=== PATIENT | male | born 1970 | race Hispanic/Latino ===

== ENCOUNTER 2017-10-22 23:55 | Emergency (ER) | payer BC, OTHER ==
[~2017-10-22 23:55] MED LIST: GABA-531 PO; GLIP10TA9 PO; LISI10TA7 PO; METF500T6 PO; SERT50TA12 PO; SIMV20TA6 PO
[2017-10-23 00:23] LABS: BASOPHILS % (AUTO) 0.4 % (0.0-5.0); EOSINOPHILS % (AUTO) 0.4 % (0.0-8.0); HEMATOCRIT 49.8 % (42-54); LYMPHOCYTES % (AUTO) 14.9 % (21.0-51.0); MEAN CORPUSCULAR HEMOGLOBIN 31.5 pg (27.0-33.0); MEAN CORPUSCULAR HGB CONC 34.8 g/dL (32.0-36.0); MEAN CORPUSCULAR VOLUME 90.6 fL (79-99); MONOCYTES % (AUTO) 6.3 % (3.0-13.0); PLATELET COUNT (AUTO) 186 K/uL (130-400); RED CELL DISTRIBUTION WIDTH 12.7 % (11.0-15.5); WHITE BLOOD COUNT (AUTO) 11.6 K/uL (4.8-10.8)
[2017-10-23] MEDS ORDERED: ONDANSETRON HCL 4 MG/2 ML VIAL ONE (00:24)
[2017-10-23] MEDS ORDERED: SODIUM CHLORIDE 0.9% 1000ML 1,000 ML IV ONE (00:24)
[2017-10-23] MEDS ORDERED: KETOROLAC TROMETHAMINE 30MG/ML ONE (00:25)
[2017-10-23 00:26] LABS: APPEARANCE,URINE Clear (CLEAR); BILIRUBIN,URINE Negative (NEGATIVE); COLOR,URINE Yellow (YELLOW); GLUCOSE, URINE (UA) >=1000 mg/dL (NEGATIVE); KETONES,URINE 40 mg/dL (NEGATIVE); LEUKOCYTE ESTERASE ,URINE Negative (NEGATIVE); NITRATE,URINE Negative (NEGATIVE); OCCULT BLOOD,URINE Negative (NEGATIVE); PH,URINE 7.5 (5.0-8.0); PROTEIN,URINE Negative (NEGATIVE); UROBILINOGEN,URINE 0.2 mg/dL (0.2-1.0)
[2017-10-23 00:31] LABS: CREATININE 0.7 mg/dL (0.5-1.5); POTASSIUM 3.9 mmol/L (3.5-5.1)
[2017-10-23 00:33] LABS: INR 0.94 (0.85-1.15); PARTIAL THROMBOPLASTIN TIME 26.7 SEC (26.3-35.5); PROTHROMBIN TIME 9.9 SEC (9.6-11.6)
[2017-10-23 00:35] LABS: ALBUMIN 3.7 g/dL (3.5-5.0); BILIRUBIN,DIRECT 0.2 mg/dL (0.0-0.3); BILIRUBIN,TOTAL 0.7 mg/dL (0.2-1.0); TOTAL PROTEIN, SERUM 7.9 g/dL (6.0-8.3)
[2017-10-23 00:37] LABS: BACTERIA,URINE Rare /HPF (None Seen); MUCUS,URINE None Seen LPF (None Seen); RBC,URINE None Seen /HPF (0-1); SQUAMOUS EPITHELIAL CELL,UR None Seen /LPF (0-2); WBC,URINE None Seen /HPF (0-1)
[2017-10-23 00:47] LABS: AMPHET/METH SCREEN,URINE NEGATIVE (NEGATIVE); BARBITURATE SCREEN, URINE NEGATIVE (NEGATIVE); BENZODIAZEPINES SCREEN,URINE NEGATIVE (NEGATIVE); CANNABINOID SCREEN,URINE NEGATIVE (NEGATIVE); COCAINE SCREEN,URINE POSITIVE (NEGATIVE); OPIATE SCREEN,URINE NEGATIVE (NEGATIVE); PHENCYCLIDINE SCREEN,URINE NEGATIVE (NEGATIVE)
== END 2017-10-23 01:25 | disposition home or self-care (01) ==
LOC: EDH 23:55
DX: K29.00 Acute gastritis without bleeding (principal); F14.10 Cocaine abuse, uncomplicated; E11.9 Type 2 diabetes mellitus without complications; I10 Essential (primary) hypertension; E78.5 Hyperlipidemia, unspecified; Z72.0 Tobacco use
CPT/HCPCS: 36415; 80048; 80076; 80305; 81001; 82550; 83690; 84484; 85025; 85610; 85730; 93005; 96361; 96374; 96375; 99285; J1885; J2405; J7030

== ENCOUNTER 2025-06-05 13:48 | Inpatient (IN) | payer BC, OTHER ==
[~2025-06-05] VITALS: Ht 175.3 cm; Wt 76.2 kg
[~2025-06-05 13:48] MED LIST changes: +GLIP10TA16 PO; -GLIP10TA9 PO; +LISI10TA24 PO; -LISI10TA7 PO; +METF-444 PO; -METF500T6 PO; +SERT-439 PO; -SERT50TA12 PO; +SIMV-43 PO; -SIMV20TA6 PO
[2025-06-05 14:32] LABS: IMMATURE GRANULOCYTE ABSOLUTE 0.02 K/uL (0-1); NUCLEATED RED BLOOD CELLS 0.0 % (0.0-0.19); PLATELET COUNT (AUTO) 245 K/uL (130-400); RED BLOOD CELL COUNT(AUTO) 5.34 MIL/uL (4.50-6.20); RED CELL DISTRIBUTION WIDTH 12.3 % (11.0-15.5); WHITE BLOOD COUNT (AUTO) 8.9 K/uL (4.8-10.8)
[2025-06-05 14:47] LABS: CREATININE 0.8 mg/dL (0.5-1.3); GLOMERULAR FILTR. RATE CALC 105.0 mL/min (>90); GLUCOSE,RANDOM 323.0 mg/dL (70-105); SODIUM SERUM 134.0 mmol/L (136-145); UREA NITROGEN, BLOOD 27.0 mg/dL (7-18)
--- NOTE | 2025-06-05 15:19 | ERN ---
General Chief Complaint: Cellulitis Stated Complaint: RT FOOT CELLULITIS Time Seen by MD: 13:55 Source: patient History of Present Illness Initial Comments PATIENT IS A 54-YEAR-OLD MALE COMING IN COMPLAINING OF RIGHT FOOT PAIN. PATIENT STATES HE WAS TRIMMING HIS TOENAIL AND NOTICED AN INFECTION IN THE RIGHT FOOT. PATIENT IS A DIABETIC. Allergies: Coded Allergies: No Known Drug Allergies (Unverified Allergy, Unknown, 10/15/16) Home Meds Reported Medications Glipizide (Glipizide) 10 Mg Tablet, 10 MG PO BID, TAB 10/22/16 Simvastatin (Simvastatin) 20 Mg Tablet, 20 MG PO HS, TAB 10/15/16 Gabapentin (Gabapentin) 300 Mg Capsule, 300 MG PO HS, CAP 10/15/16 Sertraline HCl (Sertraline HCl) 50 Mg Tablet, 50 MG PO HS, TAB 10/15/16 Lisinopril (Lisinopril) 10 Mg Tablet, 10 MG PO DAILY, TAB 10/15/16 Metformin HCl (Metformin HCl) 500 Mg Tablet, 500 MG PO BIDLUNCHDINNER, TAB 10/15/16 Past Medical History Past Medical History: Diabetes-Type II, High Cholesterol, Hypertension Past Surgical History: None ROS Dictation CONSTITUTIONAL: NO CHILLS, NO FEVER, NO WEAKNESS, NO DIAPHORESIS, NO MALAISE. HEAD/FACE: NO SIGNS OF TRAUMA. EENT: NO EYE PAIN, NO BLURRED VISION, NO TEARING, NO DOUBLE VISION, NO EAR PAIN, NO EAR DISCHARGE, NO NOSE PAIN, NO NASAL CONGESTION, NO THROAT PAIN, NO THROAT SWELLING, NO MOUTH PAIN. RESPIRATORY: NO COUGH, NO ORTHOPNEA, NO SOB, NO STRIDOR, NO WHEEZING. CARDIOVASCULAR: NO CHEST PAIN, NO EDEMA, NO PALPITATIONS, NO SYNCOPE. GASTROINTESTINAL/ABDOMINAL: NO ABDOMINAL PAIN, NO CONSTIPATION, NO DIARRHEA, NO NAUSEA, NO VOMITING. GENITOURINARY: NO ABNORMAL DISCHARGE, NO DYSURIA, NO FREQUENT URINATION, NO HEMATURIA. NO COMPLAINTS OF PAIN IN THE GENITALS. MUSCULOSKELETAL: NO BACK PAIN, NO GOUT, NO JOINT PAIN, NO JOINT SWELLING, NO MUSCLE PAIN, NO MUSCLE STIFFNESS, NO NECK PAIN. INTEGUMENTARY: NO CHANGE IN COLOR, NO CHANGE IN HAIR/NAILS, NO DRYNESS, NO LESION, NO LUMPS, NO RASH. NEUROLOGICAL/PSYCH: NO ANXIETY, NOT DEPRESSED, NO EMOTIONAL PROBLEM, NO HEADACHE, NO NUMBNESS, NO PRE-EXISTING DEFICIT, NO HISTORY OF SEIZURES, NO TREMORS, NO WEAKNESS. HEMATOLOGIC/LYMPHATIC: NOT ANEMIC, NO HISTORY OF BLOOD CLOTS, NO APPARENT BLEEDING, NO BRUISING, GLANDS NOT SWOLLEN. ALL SYSTEMS NEGATIVE, EXCEPT NOTED. Physical Exam Physical Exam Dictation VITAL SIGNS: REVIEWED. GENERAL APPEARANCE: ALERT, ORIENTED X3, NO ACUTE DISTRESS, OBESE. HEAD AND FACE: NON-TRAUMATIC. EYES: PERRL, PINK CONJUNCTIVAS, EYELID NO TRAUMA, ANTERIOR CHAMBER CLEAR. EARS: PINNAS INTACT AND NO SIGNS OF TRAUMA OR ERYTHEMA. EAR CANALS CLEAR AND NO DISCHARGE. TMS NO ERYTHEMA. NOSE: NO DISCHARGE, NO BLEEDING. OROPHARYNX: MOUTH NORMAL, TEETH NO CARIES, TONGUE PINK. PHARYNX CLEAR, NO ERYTHEMA. TONSILS NO EXUDATES, NO ABSCESSES NOTED. MUCOUS MEMBRANE MOIST. NECK: SUPPLE, NON-TENDER, NO THYROMEGALY, NO MASSES, NO JVD, NO BRUITS. BREAST: DEFERRED. CHEST: NO TENDERNESS, NO CREPITUS, NO PARADOXICAL MOVEMENT, NO RETRACTIONS. LUNGS: CLEAR, WELL-VENTILATED, SYMMETRIC, NO RALES, NO WHEEZING, NO RHONCHI, NO STRIDOR, GOOD BREATH SOUNDS BILATERALLY. HEART: REGULAR RATE, REGULAR RHYTHM, NO MURMUR, NO GALLOPS. VASCULAR: NO PERIPHERAL EDEMA. ABDOMEN: SOFT, POSITIVE BOWEL SOUNDS, NONDISTENDED, NO GUARDING, NONTENDER, NO REBOUND, NO MASSES NO HEPATOMEGALY, NO SPLENOMEGALY, NO ESTRADA'S SIGN, NO HERNIAS. RECTAL: DEFERRED. GENITAL: DEFERRED. NEUROLOGICAL: NORMAL SPEECH, GROSS MOTOR FUNCTION INTACT, GROSS SENSORY FUNCTION INTACT. MUSCULOSKELETAL: NECK NONTENDER, FULL RANGE OF MOTION, BACK NONTENDER, FULL RANGE OF MOTION. EXTREMITIES: NONTENDER, FULL RANGE OF MOTION. SKIN: COLOR ERYTHEMA, DRY, NO TURGOR, NO RASH, NO LACERATIONS, NO ABRASIONS, NO CONTUSIONS. LYMPHATICS: DEFERRED. Results Laboratory and Microbiology Lab and Micro Result Laboratory Tests Test 06/05/25 14:25 White Blood Count 8.9 K/uL (4.8-10.8) Red Blood Count 5.34 MIL/uL (4.50-6.20) Hemoglobin 16.3 g/dL (14.0-18.0) Hematocrit 46.3 % (42-54) Mean Corpuscular Volume 86.7 fL (79-99) Mean Corpuscular Hemoglobin 30.5 pg (27.0-33.0) Mean Corpuscular Hemoglobin Concent 35.2 g/dL (32.0-36.0) Red Cell Distribution Width 12.3 % (11.0-15.5) Platelet Count 245 K/uL (130-400) Mean Platelet Volume 9.3 fL (7.5-10.5) Immature Granulocyte % (Auto) 0.2 % (0-1) Neutrophils (%) (Auto) 73.5 % (40.0-77.0) Lymphocytes (%) (Auto) 17.3 % (21.0-51.0) L Monocytes (%) (Auto) 6.9 % (3.0-13.0) Eosinophils (%) (Auto) 1.7 % (0.0-8.0) Basophils (%) (Auto) 0.4 % (0.0-5.0) Neutrophils # (Auto) 6.6 K/uL (1.8-7.7) Lymphocytes # (Auto) 1.6 K/uL (1.0-4.8) Monocytes # (Auto) 0.6 K/uL (0.1-1.0) Eosinophils # (Auto) 0.15 K/uL (0.00-0.70) Basophils # (Auto) 0.04 K/uL (0.00-0.20) Absolute Immature Granulocyte (auto 0.02 K/uL (0-1) Nucleated Red Blood Cells 0.0 % (0.0-0.19) Erythrocyte Sedimentation Rate 10 MM/HR (0-20) Sodium Level 134 mmol/L (136-145) L Potassium Level 4.0 mmol/L (3.5-5.1) Chloride Level 97 mmol/L (101-111) L Carbon Dioxide Level 30 mmol/L (21-32) Blood Urea Nitrogen 27 mg/dL (7-18) H Creatinine 0.8 mg/dL (0.5-1.3) Glomerular Filtration Rate Calc 105 mL/min (>90) Random Glucose 323 mg/dL (70-105) H Total Calcium 9.0 mg/dL (8.5-10.1) C-Reactive Protein, Quantitative 20.30 mg/L (0.5-3.0) H Labs Reviewed?: Yes EKG/XRAY/US/CT/MRI X-RAY Comment X-RAY FOOT- 1ST PROXIMAL PHALANX FRACTURE MDM MDM: DIFFERENTIAL DIAGNOSIS: CELLULITIS, SEPSIS, DIABETES MELLITUS HYPERGLYCEMIA UNCONTROLLED, PHALANX FRACTURE, RATIONALE: TESTS CONSIDERED AND ORDERED SECONDARY TO SHARED DECISION MAKING INCLUDE: LABS, ECG AND RADIOLOGY PREVIOUS OUTSIDE RECORDS REVIEWED: OLD ER VISITS. RISK OF COMPLICATION AND/OR MORBIDITY OR MORTALITY OF PATIENT MANAGEMENT: NONE MEDICATIONS-PER MEDICATION RECONCILIATION NEED FOR HOSPITALIZATION: PATIENT DOES MEET CRITERIA FOR HOSPITALIZATION. NEED FOR EMERGENCY MAJOR/MINOR SURGERY: NO THERE ARE NO SOCIAL CONCERNS WITH THIS PATIENT. PRESCRIPTION DRUG MANAGEMENT PRESCRIPTIONS WILL INCLUDE SYMPTOMATIC CARE PATIENT'S PRIOR EXTERNAL MEDICAL RECORDS FROM OTHER ER VISITS WERE REVIEWED BY ME INDICATED. PRIOR TESTING AND RESULTS FROM PREVIOUS VISITS WERE REVIEWED. PRIOR TESTS WERE TAKEN INTO ACCOUNT WITH MEDICAL DECISION MAKING AND RESOURCE UTILIZATION, INDEPENDENT HISTORIAN/HISTORIANS WERE USED TO OBTAIN COMPLETE MED [facility] HISTORY. I INDEPENDENTLY INTERPRETED THE TEST THAT WERE PERFORMED, RESULTS WERE REVIEWED BY ME AND CONSIDERED FINDINGS ON RADIOLOGY IF ORDERED. MEDICAL MANAGEMENT AND EXAMINATION INTERPRETATION DISCUSSIONS WERE HAD BY ME WITH OTHER QUALIFIED HEALTHCARE PROFESSIONALS INDICATED FOR THE PATIENT'S CARE. PATIENT WILL BE ADMITTED UNDER THE CARE OF HOSPITALIST GROUP. ED Course Orders Procedure Category Date Status Time Cbc With Differential LAB 06/05/25 Complete 14:11 Basic Metabolic Panel LAB 06/05/25 Complete 14:11 Erythrocyte LAB 06/05/25 Complete Sedimentation Rate 14:11 Crp Quantitative LAB 06/05/25 Complete 14:11 Foot Comp 3+Vws Rt RAD 06/05/25 Resulted 14:11 Vancomycin 1g/250ml PHA 06/05/25 Complete Kit (Vancomycin 1g/2 15:30 Zosyn 3.375gm+Ns 50ml PHA 06/05/25 Complete (Zosyn 3.375gm+Ns 15:30 Insulin Regular, PHA 06/05/25 Complete Human 3ml (Humulin R 15:30 0.9%Nacl 1000ml (Ns PHA 06/05/25 Complete 1000ml) 15:30 Current Medications Medications (Trade) Dose Ordered Sig/Jenifer Route PRN Reason Start Time Stop Time Status Last Admin Dose Admin Insulin Human Regular (humuLIN R 100 UNIT/ML 3ML) 5 unit ONCE ONCE IV 06/05/25 15:30 06/05/25 15:36 DC 06/05/25 15:47 Piperacillin Sod/ Tazobactam Sod (Zosyn 3.375gm+NS 50ml) 3.375 gm Q12H STAT IV 06/05/25 15:30 06/05/25 15:36 DC 06/05/25 15:46 Sodium Chloride 1,000 ml @ 0 mls/hr ONCE ONCE IV 06/05/25 15:30 06/05/25 15:36 DC 06/05/25 15:45 Vancomycin HCl (Vancomycin 1g/ 250ml Kit) 1 gm ONCE ONCE IV 06/05/25 15:30 06/05/25 15:36 DC 06/05/25 15:46 Vital Signs Date Time Temp Pulse Resp B/P (MAP) Pulse Ox O2 Delivery O2 Flow Rate FiO2 06/05/25 13:54 98.8 92 16 138/84 99 Room Air* 0 21 06/05/25 13:49 98.8 106 16 145/90 99 Room Air 0 DX & DISP Disposition: Inpatient Decision to Admit Time: 15:58 Departure Impression: Primary Impression: Phalanx fracture, foot Additional Impressions: Sepsis, Cellulitis, Diabetes mellitus due to underlying condition, uncontrolled, with hyperglycemia Condition: Stable Referrals: WARREN MAJOR MD (PCP) PAUL ORTIZ MD Jun 05, 2025 15:19
[2025-06-05 15:44] LABS: ERYTHROCYTE SEDIMENTATION RATE 10 MM/HR (0-20)
[2025-06-05] MEDS: 0.9%NACL 1000ML 1,000 ML IV ONE (15:45)
[2025-06-05] MEDS: ZOSYN 3.375GM +NS 50ML IV STA (15:46)
[2025-06-05] MEDS: VANCOMYCIN KIT 1 GM/250 ML IV.KIT IV ONE (15:46)
--- NOTE | 2025-06-05 15:47 | HMCIMG ---
EXAM: CR right foot, 2 View. CLINICAL HISTORY: CELLULITIS COMPARISON: None provided. FINDINGS: BONES: Comminuted displaced fracture involving the head of the proximal phalanx of the first digit extending into the interphalangeal joint. Mild overlying soft tissue swelling. Small posterior calcaneal spur JOINTS: The joint spaces appear within normal limits. No dislocation. SOFT TISSUES: The soft tissues are unremarkable. IMPRESSION: 1. Comminuted displaced fracture of the first digit proximal phalanx head with intra-articular extension and mild soft tissue swelling. /[place]
[2025-06-05] MEDS ORDERED: VANCOMYCIN PROTOCOL PER PHARMACY IV SCH (17:30)
[2025-06-05 17:52] LABS: ASPARTATE AMINOTRANSFERASE 14.0 U/L (10-37); TOTAL PROTEIN, SERUM 7.5 g/dL (6.0-8.3)
--- NOTE | 2025-06-05 17:57 | HP ---
[facility] HISTORY AND PHYSICAL Date of Service: Jun 05, 2025 Time of Service: 17:48 HISTORY OF PRESENT ILLNESS: Date of service: 06/05/2025, patient was seen in ER room 10 54-year-old male with underlying history of poorly controlled type 2 diabetes mellitus, hypertension, chronic tobacco use disorder, history of cocaine use who presented to the ER for further evaluation of progressive redness, swelling of the 1st digit of the right toe with redness extending into the right forefoot and increased swelling of the right foot as well. Symptoms have been ongoing for the past 1-2 days and patient noticed this morning he had erythema of the 1st toe was significantly worse compared to yesterday. Denies any significant trauma or injury to the 1st digit of the right foot. He has a underlying history of onychomycosis of the toes. Patient reports having history of type 2 diabetes mellitus. He is supposed to be on insulin and metformin as outpatient. He has been noncompliant with insulin therapy for more than a year. He intermittently takes metformin as outpatient. Reports having history of hypertension but has not taken antihypertensives for several months. Patient reports smoking a pack of cigarettes in a week for more than 10 years. he uses cocaine as well every 2-3 days for several years as well. Denies any significant alcohol consumption. Presentation to the hospital, patient was noted to be afebrile with T-max of 98.8 F, heart rate of 106, blood pressure of 145/90. Labs on presentation showed WBC count of 8900, hemoglobin 16.3, platelet count of 130449. Remarkable for sodium of 134, potassium 4.0, chloride of 97, creatinine of 0.8, blood glucose of 323, CRP of 20.3. X-ray of the right foot showed comminuted displaced fracture of the 1st digit proximal phalanx with soft tissue swelling intra-articular extension. Patient will be admitted for progressive right foot/right 1st digit cellulitis, and we will also undergo workup to rule out acute osteomyelitis. Blood glucose will be controlled and patient will be reinstituted antihypertensives and insulin therapy. Consultation with Podiatry will be requested. REVIEW OF SYSTEMS CONSTITUTIONAL: Denies fevers, chills, or night sweats. No unintentional weight loss reported. NEUROLOGICAL: Denies headache, amaurosis fugax, motor weakness, sensory deficit, vertigo/spinning sensation, gait abnormalities, or tremors. ENT: No hearing loss, otalgia, otorrhea, rhinitis, rhinorrhea, hoarseness, or sore throat. CARDIOVASCULAR: Denies any exertional angina, dyspnea on exertion, orthopnea, paroxysmal nocturnal dyspnea, palpitations, life-threatening arrhythmias, claudication. PULMONARY: Denies any shortness of breath, cough, phlegm/sputum, hemoptysis, pleuritic chest pain. SLEEP: Denies morning headaches, daytime somnolence or napping. Denies difficulty falling asleep, staying asleep, waking from sleep. Denies knowledge of snoring. GASTROINTESTINAL: Denies any type of dysphagia to either liquids or solids. Denies nausea, vomiting, pyrosis, early satiety, abdominal pain, diarrhea, constipation, or changes in stool consistency or caliber. Denies coffee-ground emesis, hematemesis, hematochezia, or melanotic stools. GENITOURINARY: Denies frequency, urgency, nocturia, hematuria or incontinence (Storage/Irritative symptoms.) Low urinary stream, straining to void, urinary intermittency or hesitancy, splitting of the voiding stream, terminal dribbling. ENDOCRINOLOGIC: Denies polyuria, polydipsia, polyphagia or heat/cold intolerances. HEMATOLOGIC: Denies thrombophilia/previous clots, or coagulopathy/bleeding disorders. ONCOLOGIC: Denies personal history of malignancy. DERMATOLOGIC: Redness and swelling of the right PSYCHIATRIC: Denies any suicidal or homicidal ideation. Denies hallucinations. PAST MEDICAL HISTORY: Hypertension, hyperlipidemia, type 2 diabetes mellitus, history of cocaine use disorder, tobacco use disorder PAST SURGICAL HISTORY: Denies history of major surgical procedure PAST SOCIAL HISTORY: Smokes about a pack of cigarettes in a week for more than 10 years, uses cocaine two to 3 times a week for several years, denies significant alcohol consumption FAMILY HISTORY: Reports family history of type 2 diabetes mellitus Allergies: No known drug allergies Home medications: Reports being on metformin and lisinopril as outpatient Coded Allergies: No Known Drug Allergies (Unverified Allergy, Unknown, 10/15/16) PHYSICAL EXAM GENERAL APPEARANCE: The patient is awake, alert, and oriented, in no acute cardiopulmonary distress. NEUROLOGICAL: Cranial nerves II-XII grossly intact. Motor is 5/5 in bilateral upper and lower extremities proximal to distal. No sensory deficits. HEENT: Face is symmetric. Pupils are equal and reactive. Extraocular movements are intact. NECK: Supple. No JVD. No thyromegaly. No submental, submandibular, pre- /postauricular, occipital or supraclavicular lymphadenopathy. CHEST: Normal chest expansion. No Telemetry. LUNGS: Absence of any rales, rhonchi or any wheezing. CARDIOVASCULAR: Regular. S1 and S2 normal. No appreciable rubs, murmurs or gallops. ABDOMEN: Soft, nontender, and nondistended. There is no rebound, voluntary guarding, or rigidity. : Deferred. No Garcia. EXTREMITIES: Significant redness, erythema and swelling noted of the 1st digit of the right foot, there is erythema extending into the right forefoot and there is swelling noted of the right foot extending into the distal leg SKIN: as noted above Vital Sign (Last 24 Hours) 06/05/25 06/05/25 16:17 16:32 Temp 98.8 Pulse 72 Resp 19 B/P (MAP) 131/72 Pulse Ox 97 O2 Delivery Room Air* O2 Flow Rate 0 FiO2 21 LABS: Laboratory: Test 06/05/25 14:25 Range/Units White Blood Count 8.9 4.8-10.8 K/uL Red Blood Count 5.34 4.50-6.20 MIL/uL Hemoglobin 16.3 14.0-18.0 g/dL Hematocrit 46.3 42-54 % Mean Corpuscular Volume 86.7 79-99 fL Mean Corpuscular Hemoglobin 30.5 27.0-33.0 pg Mean Corpuscular Hemoglobin Concent 35.2 32.0-36.0 g/dL Red Cell Distribution Width 12.3 11.0-15.5 % Platelet Count 245 130-400 K/uL Mean Platelet Volume 9.3 7.5-10.5 fL Immature Granulocyte % (Auto) 0.2 0-1 % Neutrophils (%) (Auto) 73.5 40.0-77.0 % Lymphocytes (%) (Auto) 17.3 L 21.0-51.0 % Monocytes (%) (Auto) 6.9 3.0-13.0 % Eosinophils (%) (Auto) 1.7 0.0-8.0 % Basophils (%) (Auto) 0.4 0.0-5.0 % Neutrophils # (Auto) 6.6 1.8-7.7 K/uL Lymphocytes # (Auto) 1.6 1.0-4.8 K/uL Monocytes # (Auto) 0.6 0.1-1.0 K/uL Eosinophils # (Auto) 0.15 0.00-0.70 K/uL Basophils # (Auto) 0.04 0.00-0.20 K/uL Absolute Immature Granulocyte (auto 0.02 0-1 K/uL Nucleated Red Blood Cells 0.0 0.0-0.19 % Erythrocyte Sedimentation Rate 10 0-20 MM/HR Sodium Level 134 L 136-145 mmol/L Potassium Level 4.0 3.5-5.1 mmol/L Chloride Level 97 L 101-111 mmol/L Carbon Dioxide Level 30 21-32 mmol/L Blood Urea Nitrogen 27 H 7-18 mg/dL Creatinine 0.8 0.5-1.3 mg/dL Glomerular Filtration Rate Calc 105 >90 mL/min Random Glucose 323 H 70-105 mg/dL Total Calcium 9.0 8.5-10.1 mg/dL C-Reactive Protein, Quantitative 20.30 H 0.5-3.0 mg/L Current Medications Medications (Trade) Dose Ordered Sig/Jenifer Route PRN Reason Start Time Stop Time Status Last Admin Dose Admin Acetaminophen (TYLenol 325MG TAB) 650 mg Q6H PRN PO MILD PAIN (1-3) 06/05/25 17:30 07/05/25 17:29 Cefepime HCl (MAXipime 2 gm vial) 2 gm BID IVPB 06/05/25 21:00 06/15/25 20:59 Enoxaparin Sodium (Lovenox) 40 mg DAILY SQ 06/06/25 09:00 07/06/25 08:59 Famotidine (Pepcid 20mg Tab) 20 mg BID PO 06/05/25 21:00 07/05/25 20:59 Hydralazine HCl (APRESOLine 20MG INJ) 5 mg Q6H PRN IV ADMINISTER FOR SBP > 160 06/05/25 18:00 07/05/25 17:59 Insulin Glargine (LANtus 100 UNITS/ML 10 ML VIAL) 15 units HS SQ 06/05/25 21:00 07/05/25 20:59 Insulin Human Regular (humuLIN R 100 UNIT/ML 3ML) INSULIN SLIDING SCAL... ACHS SQ 06/05/25 21:00 07/05/25 20:59 Lisinopril (Prinivil 10mg) 10 mg DAILY PO 06/06/25 09:00 07/06/25 08:59 Morphine Sulfate (morPHINE 2MG SYG) 2 mg Q6H PRN IVP SEVERE PAIN (7-10) 06/05/25 17:30 06/12/25 17:29 Ondansetron HCl (zoFRAN 4MG INJ) 4 mg Q6H PRN IVP NAUSEA/VOMITING 06/05/25 17:30 07/05/25 17:29 Piperacillin Sod/ Tazobactam Sod (Zosyn 3.375gm+NS 50ml) 3.375 gm Q12H STAT IV 06/05/25 15:30 06/05/25 15:36 DC 06/05/25 15:46 3.375 GM Sodium Chloride 1,000 ml @ 75 mls/hr [id number] IV 06/05/25 17:30 07/05/25 17:29 Vancomycin HCl (Vancomycin 750mg) 750 mg Q8H IVPB 06/05/25 23:30 06/15/25 23:29 Vancomycin HCl (Vancomycin Protocol) 1 each AD IV 06/05/25 17:30 06/19/25 17:29 DIAGNOSTICS / RADIOLOGY: SERVICE 1411 REASON: CELLULITIS ORDERING PHYSICIAN: PAUL ORTIZ MD PROCEDURE: FT 3VW RT - FOOT COMP 3+VWS RT EXAM: CR right foot, 2 View. CLINICAL HISTORY: CELLULITIS COMPARISON: None provided. FINDINGS: BONES: Comminuted displaced fracture involving the head of the proximal phalanx of the first digit extending into the interphalangeal joint. Mild overlying soft tissue swelling. Small posterior calcaneal spur JOINTS: The joint spaces appear within normal limits. No dislocation. SOFT TISSUES: The soft tissues are unremarkable. IMPRESSION: 1. Comminuted displaced fracture of the first digit proximal phalanx head with intra-articular extension and mild soft tissue swelling. /[place] DICTATED BY: GORDO ZELAYA MD DATE: 06/05/25 164 ELECTRONICALLY SIGNED BY: GORDO ZELAYA MD DATE: 06/05/25 4387 ASSESSMENT: Progressive cellulitis of the right 1st toe of the right foot, POA Progressive cellulitis with swelling of the right foot, POA Rule out 1st toe fracture of the right foot/acute osteomyelitis of the 1st toe of the right foot, POA History of poorly controlled type 2 diabetes mellitus, POA History of hypertension, POA Tobacco use disorder, POA Cocaine use disorder, POA Hyperlipidemia, POA PLAN: Patient will be admitted to medical-surgical floor under telemetry monitoring We will start patient on IV hydration with NS at 75 mL/hour Obtain a MRI of the right foot to rule out osteomyelitis of the 1st digit of the right foot, we will obtain blood cultures, ESR, CRP, procalcitonin Consultation will be requested with Dr. Jensen with Podiatry, appreciate recommendations We will start patient on broad-spectrum antibiotics with IV vancomycin/cefepime due to significant cellulitis noted of the right foot with swelling extending into the distal right leg Consultation with Infectious Disease will be requested We will start patient on [id number] units at bedtime and continue sliding scale insulin a.c. and HS, we will obtain a hemoglobin A1c as well We will obtain a arterial duplex to rule out significant PAD of the right lower extremity Discussed with patient extensively to quit smoking and cocaine use, patient verbalized understanding All labs will be repeated in the morning We will keep patient on DVT prophylaxis with Lovenox, GI prophylaxis with Pepcid Anticipate hospitalization for at least 48-72 hours We will obtain 2 D Echo due to hx of cocaine use Date of service: 06/05/2025 Plan of care was discussed with patient at bedside, Eusebio Daniel MD Advanced Care Planning: Which of the following were discussed: Hospice care: Yes __ No _X_ Therapeutic options: Yes _X_ No __ Advance directives: Yes _X_ No __ Other discussions: Discussed with who?: Patient Voluntary nature of this service was explained to the patient? Yes _x_ No __ Amount of time spent: 20 minutes EUSEBIO DANIEL MD Jun 05, 2025 17:57
--- NOTE | 2025-06-05 17:59 | HMCIMG ---
EXAM: Ultrasound bilateral lower extremity arteries. History: Peripheral arterial disease Technique: Static grayscale and Doppler images were obtained Right side: [employer] systolic: 88 cm/s Waveform: Triphasic SFA proximal systolic: 95 cm/s Waveform: Triphasic SFA mid systolic: 91 cm/s Waveform: Triphasic SFA distal systolic: 92 cm/s Waveform triphasic Popliteal artery systolic: 93/90 cm/s Waveform triphasic Posterior tibial artery systolic 88 cm/s Waveform triphasic Dorsalis pedis artery systolic 78 cm/s Waveform triphasic Anterior tibial artery: 66 cm/s. Waveform: Triphasic Plaque formation: Minimal Left side: [employer] systolic: 98 cm/s Waveform: Triphasic SFA proximal systolic: 85 cm/s Waveform: Triphasic SFA mid systolic: 88 cm/s Waveform: Triphasic SFA distal systolic: 69 cm/s Waveform triphasic Popliteal artery systolic: 69/77 cm/s Waveform triphasic Posterior tibial artery systolic 80 cm/s Waveform triphasic Dorsalis pedis artery systolic 40 cm/s Waveform biphasic Anterior tibial artery: 40 cm/s. Waveform: Biphasic Plaque formation: Minimal Impression: No hemodynamically significant stenosis. Normal velocities and multiphasic waveform pattern throughout /[place]
[2025-06-05] MEDS: 0.9%NACL 1000ML 1,000 ML IV SCH (18:50)
[2025-06-05] MEDS: FAMOTIDINE 20MG TAB PO SCH (22:31)
--- NOTE | 2025-06-05 23:57 | NUR ---
REPORT GIVEN TO EDITH BRADFORD ALL QUESTIONS ANSWERED AT THIS TIME. RN EXPECTING PT ARRIVAL TO THE UNIT
[2025-06-06] VITALS (7 sets, daily range): BP systolic 106–154; BP diastolic 43–96; PULSE 82–96; RESP 16–20; TEMP 96.3–98.4; O2SAT 98
[2025-06-06] MEDS: VANCOMYCIN 750MG VIAL IVPB SCH (00:25)
[2025-06-06 00:27] LABS: APPEARANCE,URINE CLEAR (CLEAR); GLUCOSE, URINE (UA) >=1000 mg/dL (NEGATIVE); LEUKOCYTE ESTERASE ,URINE NEGATIVE Leu/uL (NEGATIVE); NITRATE,URINE NEGATIVE (NEGATIVE); OCCULT BLOOD,URINE NEGATIVE (NEGATIVE)
[2025-06-06 00:29] LABS: ADD UA MICROSCOPIC YES
[2025-06-06 00:35] LABS: AMPHET/METH SCREEN,URINE NEGATIVE (NEGATIVE); BARBITURATE SCREEN, URINE NEGATIVE (NEGATIVE); CANNABINOID SCREEN,URINE NEGATIVE (NEGATIVE); COCAINE SCREEN,URINE POSITIVE (NEGATIVE)
[2025-06-06 05:36] LABS: IMMATURE GRANULOCYTE ABSOLUTE 0.03 K/uL (0-1); NUCLEATED RED BLOOD CELLS 0.0 % (0.0-0.19); PLATELET COUNT (AUTO) 205 K/uL (130-400); RED BLOOD CELL COUNT(AUTO) 4.87 MIL/uL (4.50-6.20); RED CELL DISTRIBUTION WIDTH 12.2 % (11.0-15.5); WHITE BLOOD COUNT (AUTO) 10.2 K/uL (4.8-10.8)
[2025-06-06 05:53] LABS: CREATININE 0.7 mg/dL (0.5-1.3); GLOMERULAR FILTR. RATE CALC 110.0 mL/min (>90); GLUCOSE,RANDOM 162.0 mg/dL (70-105); SODIUM SERUM 140.0 mmol/L (136-145); UREA NITROGEN, BLOOD 17.0 mg/dL (7-18)
[2025-06-06] MEDS: LISINOPRIL 10 MG TABLET PO SCH (07:58)
[2025-06-06] MEDS: ENOXAPARIN SODIUM 40 MG/0.4 ML SYRINGE SQ SCH (07:59)
[2025-06-06] MEDS ORDERED: MAGNESIUM 2GM PREMIX 50ML 50 ML IV PRN (10:00)
[2025-06-06] MEDS: MAGNESIUM 2GM PREMIX 50ML 50 ML IV ONE (10:16)
--- NOTE | 2025-06-06 10:39 | NUR ---
DCP:HOME Pt currently lives with his mom Rafaela Browne [phone]. Pt does not have any DME, home health, or provider services. Pt states that he is able to complete ADLs independently. PCP is Dr. Fede Duarte and uses [facility] for any RX needs. At [place] pt will want to go home and family can assist with transportation. Addendum: 06/06/25 at 1041 by GORDO ROCHA SS Amended: Links added.
--- NOTE | 2025-06-06 11:09 | CONS ---
CONSULTATION NOTE Date of Service: Jun 06, 2025 Reason for Consultation: 54 years old male seen in consultation for evaluation of cellulitis and right hallux fracture. Requesting Physician: Dr. Daniel HISTORY OF PRESENT ILLNESS: This 54 years old male relates the story that he was walking and dark in the park last Wednesday when he sprained his foot possibly hitting his great toe on the pavement then after the the area of the hallux became red swollen and the swelling extended to the foot at this time concern about it the patient presented to the emergency room. REVIEW OF SYSTEMS CONSTITUTIONAL: Denies fever, chills, or fatigue. HEAD/FACE: No signs of trauma. EENT: Denies eye pain, blurred vision, double vision, or light sensitivity. RESPIRATORY: Denies shortness of breath, cough, wheezing CARDIOVASCULAR: Denies chest pain, palpitation, syncope GASTROINTESTINAL/ABDOMINAL: Denies abdominal pain, constipation, diarrhea, nausea or vomiting GENITOURINARY: Denies dysuria or hematuria. MUSCULOSKELETAL: Fracture great toe right foot. INTEGUMENTARY: Plantar calluses. Cellulitis of the right foot NEUROLOGICAL/PSYCH: Denies anxiety, depression, heat or cold intolerance. PAST MEDICAL HISTORY: Diabetes Hypertension PAST SURGICAL HISTORY: Denies any PAST SOCIAL HISTORY: Patient admits smoking. One package of cigarettes per day. History of cocaine use as per medical record. Stated he used to drink until one year ago. 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 FAMILY HISTORY: Noncontributory. Coded Allergies: No Known Drug Allergies (Unverified Allergy, Unknown, 10/15/16) PHYSICAL EXAM EYES: Anicteric. Pupils equal and reactive. HENT: No oral thrush seen, moist Oral mucosa NECK: Supple, no JVD or thyromegaly. LUNGS: Good air entry. No rales, no rhonchi. CARDIOVASCULAR: S1, S2 regular. No murmur heard. ABDOMEN: Soft, non tender, bowel sounds present, no organomegaly CENTRAL NERVOUS SYSTEM: Awake, alert, oriented x 3. No focal deficits. SKIN: Callus formation on bilateral great toes with cellulitis on the right foot extending from the toe to the posterior medial aspect of the foot. LYMPHATICS: No peripheral lymphadenopathy MUSCULOSKELETAL: No joint swelling, erythema or tenderness. EXTREMITIES: Hammertoe and bunion deformity on bilateral feet. BACK: No deformity, no pressure ulcer. GENITOURINARY: No dysuria or hematuria Vital Sign (Last 24 Hours) 06/06/25 06/06/25 00:10 08:00 Temp 97.9 Pulse 82 Resp 16 B/P (MAP) 106/43 Pulse Ox 98 O2 Delivery Room Air O2 Flow Rate 0 FiO2 21 LABS: Laboratory: Test 06/06/25 09:48 06/06/25 05:22 06/06/25 04:57 06/05/25 23:44 Range/Units Lactic Acid Level 0.9 0.8-2.5 mmol/L White Blood Count 10.2 4.8-10.8 K/uL Red Blood Count 4.87 4.50-6.20 MIL/uL Hemoglobin 14.9 14.0-18.0 g/dL Hematocrit 43.3 42-54 % Mean Corpuscular Volume 88.9 79-99 fL Mean Corpuscular Hemoglobin 30.6 27.0-33.0 pg Mean Corpuscular Hemoglobin Concent 34.4 32.0-36.0 g/dL Red Cell Distribution Width 12.2 11.0-15.5 % Platelet Count 205 130-400 K/uL Mean Platelet Volume 9.1 7.5-10.5 fL Immature Granulocyte % (Auto) 0.3 0-1 % Neutrophils (%) (Auto) 64.3 40.0-77.0 % Lymphocytes (%) (Auto) 23.0 21.0-51.0 % Monocytes (%) (Auto) 8.4 3.0-13.0 % Eosinophils (%) (Auto) 3.7 0.0-8.0 % Basophils (%) (Auto) 0.3 0.0-5.0 % Neutrophils # (Auto) 6.6 1.8-7.7 K/uL Lymphocytes # (Auto) 2.4 1.0-4.8 K/uL Monocytes # (Auto) 0.9 0.1-1.0 K/uL Eosinophils # (Auto) 0.38 0.00-0.70 K/uL Basophils # (Auto) 0.03 0.00-0.20 K/uL Absolute Immature Granulocyte (auto 0.03 0-1 K/uL Nucleated Red Blood Cells 0.0 0.0-0.19 % Sodium Level 140 136-145 mmol/L Potassium Level 4.0 3.5-5.1 mmol/L Chloride Level 104 101-111 mmol/L Carbon Dioxide Level 29 21-32 mmol/L Blood Urea Nitrogen 17 7-18 mg/dL Creatinine 0.7 0.5-1.3 mg/dL Glomerular Filtration Rate Calc 110 >90 mL/min Random Glucose 162 H 70-105 mg/dL Total Calcium 8.2 L 8.5-10.1 mg/dL Magnesium Level 1.60 L 1.80-2.40 mg/dL Whole Blood Glucose 160 #H 70-110 MG/DL Urine Color LIGHT-YELLOW YELLOW Urine Appearance CLEAR CLEAR Urine pH 6.5 5.0-8.0 Urine Specific [place] 1.022 1.001-1.031 Urine Protein NEGATIVE NEGATIVE mg/dL Urine Glucose (UA) >=1000 H NEGATIVE mg/dL Urine Ketones NEGATIVE NEGATIVE mg/dL Urine Occult Blood NEGATIVE NEGATIVE Urine Nitrate NEGATIVE NEGATIVE Urine Bilirubin NEGATIVE NEGATIVE mg/dL Urine Urobilinogen 0.2 0.2-1.0 mg/dL Urine Leukocyte Esterase NEGATIVE NEGATIVE Derick/uL Urine RBC 2-5 H 0-1 /HPF Urine WBC 0-1 0-1 /HPF Urine Bacteria RARE None Seen /HPF Urine Opiates Screen NEGATIVE NEGATIVE Urine Barbiturates Screen NEGATIVE NEGATIVE Urine Phencyclidine Screen NEGATIVE NEGATIVE Urine Amphetamines Screen NEGATIVE NEGATIVE Urine Benzodiazepines Screen NEGATIVE NEGATIVE Urine Cocaine Screen POSITIVE H NEGATIVE Urine Marijuana (THC) Screen NEGATIVE NEGATIVE Test 06/05/25 14:25 Range/Units Erythrocyte Sedimentation Rate 10 0-20 MM/HR Hemoglobin A1c 11.5 H 4.0-6.0 % Estimated Average Glucose (eAG) 283 H 70-126 mg/dL Total Bilirubin 1.1 H 0.2-1.0 mg/dL Direct Bilirubin 0.3 0.0-0.3 mg/dL Aspartate Amino Transf (AST/SGOT) 14 10-37 U/L Alanine Aminotransferase (ALT/SGPT) 24 12-78 U/L Alkaline Phosphatase 108 50-136 U/L C-Reactive Protein, Quantitative 20.30 H 0.5-3.0 mg/L Total Protein 7.5 6.0-8.3 g/dL Albumin 3.6 3.5-5.0 g/dL Procalcitonin < 0.05 L 0.05-0.5 ng/mL DIAGNOSTICS / RADIOLOGY: Fracture proximal phalanx right hallux. Intra-articular this place. ASSESSMENT: Fracture hallux proximal phalanx right foot. Cellulitis of the right foot. PLAN: Continue local wound care at this time we will monitor his progress most likely the patient will develop arthritis on this toe. If it does not improve with the mobilization and surgical shoe surgical removal of the head of the proximal phalanx to be done in the near future. We will monitor his progress. Recommended surgical shoe was patient ambulatory. To use the shoes for 4-6 weeks. WARREN FLYNN DPM Jun 06, 2025 11:09
--- NOTE | 2025-06-06 11:18 | PN ---
[facility] PROGRESS NOTE Date of Service: Jun 06, 2025 Time of Service: 11:15 SUBJECTIVE: 54-year-old male with underlying history of poorly controlled type 2 diabetes mellitus, hypertension, chronic tobacco use disorder, history of cocaine use who presented to the ER for further evaluation of progressive redness, swelling of the 1st digit of the right toe with redness extending into the right forefoot and increased swelling of the right foot as well. Symptoms have been ongoing for the past 1-2 days and patient noticed this morning he had erythema of the 1st toe was significantly worse compared to yesterday. Denies any significant trauma or injury to the 1st digit of the right foot. He has a underlying history of onychomycosis of the toes.Patient reports having history of type 2 diabetes mellitus. He is supposed to be on insulin and metformin as outpatient. He has been noncompliant with insulin therapy for more than a year. He intermittently takes metformin as outpatient. Reports having history of hypertension but has not taken antihypertensives for several months.Patient reports smoking a pack of cigarettes in a week for more than 10 years. he uses cocaine as well every 2-3 days for several years as well. Denies any significant alcohol consumption. Presentation to the hospital, patient was noted to be afebrile with T-max of 98.8 F, heart rate of 106, blood pressure of 145/90. Labs on presentation showed WBC count of 8900, hemoglobin 16.3, platelet count of 721561. Remarkable for sodium of 134, potassium 4.0, chloride of 97, creatinine of 0.8, blood glucose of 323, CRP of 20.3. X-ray of the right foot showed comminuted displaced fracture of the 1st digit proximal phalanx with soft tissue swelling intra-articular extension. Patient will be admitted for progress nash right foot/right 1st digit cellulitis, and we will also undergo workup to rule out acute osteomyelitis. Blood glucose will be controlled and patient will be reinstituted antihypertensives and insulin therapy. Consultation with Podiatry will be requested. 06/06/2025: The patient is alert, awake and oriented. There is no pain on the right leg or foot although the patient complains of pain in his left lateral chest wall that he attributes to muscle spasm that developed 5 days ago while he was picking something up. He is given a lidocaine patch for the is scheduled for an MRI of foot today along with echocardiogram. Patient has a history of non compliance to diabetic and hypertensive medication. His HbA1c is 11.5, therefore endocrinology is consulted. The patient is afebrile and has a WBC of 10.2, hemoglobin of 14.9. His magnesium was 1.60 and was replaced according to protocol. REVIEW OF SYSTEMS CONSTITUTIONAL: Denies fevers, chills, or night sweats. No unintentional weight loss reported. NEUROLOGICAL: Denies headache, amaurosis fugax, motor weakness, sensory deficit, vertigo/spinning sensation, gait abnormalities, or tremors. ENT: No hearing loss, otalgia, otorrhea, rhinitis, rhinorrhea, hoarseness, or sore throat. CARDIOVASCULAR: Denies any exertional angina, dyspnea on exertion, orthopnea, paroxysmal nocturnal dyspnea, palpitations, life-threatening arrhythmias, claudication. PULMONARY: Denies any shortness of breath, cough, phlegm/sputum, hemoptysis, pleuritic chest pain. SLEEP: Denies morning headaches, daytime somnolence or napping. Denies difficulty falling asleep, staying asleep, waking from sleep. Denies knowledge of snoring. GASTROINTESTINAL: Denies any type of dysphagia to either liquids or solids. Denies nausea, vomiting, pyrosis, early satiety, abdominal pain, diarrhea, constipation, or changes in stool consistency or caliber. Denies coffee-ground emesis, hematemesis, hematochezia, or melanotic stools. GENITOURINARY: Denies frequency, urgency, nocturia, hematuria or incontinence (Storage/Irritative symptoms.) Low urinary stream, straining to void, urinary intermittency or hesitancy, splitting of the voiding stream, terminal dribbling. ENDOCRINOLOGIC: Denies polyuria, polydipsia, polyphagia or heat/cold intolerances. HEMATOLOGIC: Denies thrombophilia/previous clots, or coagulopathy/bleeding disorders. ONCOLOGIC: Denies personal history of malignancy. DERMATOLOGIC: Redness and swelling of the right PSYCHIATRIC: Denies any suicidal or homicidal ideation. Denies hallucinations. PHYSICAL EXAM GENERAL APPEARANCE: The patient is awake, alert, and oriented, in no acute cardiopulmonary distress. NEUROLOGICAL: Cranial nerves II-XII grossly intact. Motor is 5/5 in bilateral upper and lower extremities proximal to distal. No sensory deficits. HEENT: Face is symmetric. Pupils are equal and reactive. Extraocular movements are intact. NECK: Supple. No JVD. No thyromegaly. No submental, submandibular, pre- /postauricular, occipital or supraclavicular lymphadenopathy. CHEST: Normal chest expansion. No Telemetry. Pain/tenderness on the left lateral chest wall. LUNGS: Absence of any rales, rhonchi or any wheezing. CARDIOVASCULAR: Regular. S1 and S2 normal. No appreciable rubs, murmurs or gallops. ABDOMEN: Soft, nontender, and nondistended. There is no rebound, voluntary guarding, or rigidity. : Deferred. No Garcia. EXTREMITIES: Significant redness, erythema and swelling noted of the 1st digit of the right foot, there is erythema extending into the right forefoot and there is swelling noted of the right foot extending into the distal leg SKIN: as noted above Vital Signs (last 8hr) Date Time Temp Pulse Resp B/P (MAP) Pulse Ox O2 Delivery O2 Flow Rate FiO2 06/06/25 08:00 97.9 82 16 106/43 98 Room Air 21 06/06/25 03:50 98.2 86 17 131/87 98 Room Air LABS: Laboratory: Test 06/06/25 09:48 06/06/25 05:22 06/06/25 04:57 06/05/25 23:44 Range/Units Lactic Acid Level 0.9 0.8-2.5 mmol/L White Blood Count 10.2 4.8-10.8 K/uL Red Blood Count 4.87 4.50-6.20 MIL/uL Hemoglobin 14.9 14.0-18.0 g/dL Hematocrit 43.3 42-54 % Mean Corpuscular Volume 88.9 79-99 fL Mean Corpuscular Hemoglobin 30.6 27.0-33.0 pg Mean Corpuscular Hemoglobin Concent 34.4 32.0-36.0 g/dL Red Cell Distribution Width 12.2 11.0-15.5 % Platelet Count 205 130-400 K/uL Mean Platelet Volume 9.1 7.5-10.5 fL Immature Granulocyte % (Auto) 0.3 0-1 % Neutrophils (%) (Auto) 64.3 40.0-77.0 % Lymphocytes (%) (Auto) 23.0 21.0-51.0 % Monocytes (%) (Auto) 8.4 3.0-13.0 % Eosinophils (%) (Auto) 3.7 0.0-8.0 % Basophils (%) (Auto) 0.3 0.0-5.0 % Neutrophils # (Auto) 6.6 1.8-7.7 K/uL Lymphocytes # (Auto) 2.4 1.0-4.8 K/uL Monocytes # (Auto) 0.9 0.1-1.0 K/uL Eosinophils # (Auto) 0.38 0.00-0.70 K/uL Basophils # (Auto) 0.03 0.00-0.20 K/uL Absolute Immature Granulocyte (auto 0.03 0-1 K/uL Nucleated Red Blood Cells 0.0 0.0-0.19 % Sodium Level 140 136-145 mmol/L Potassium Level 4.0 3.5-5.1 mmol/L Chloride Level 104 101-111 mmol/L Carbon Dioxide Level 29 21-32 mmol/L Blood Urea Nitrogen 17 7-18 mg/dL Creatinine 0.7 0.5-1.3 mg/dL Glomerular Filtration Rate Calc 110 >90 mL/min Random Glucose 162 H 70-105 mg/dL Total Calcium 8.2 L 8.5-10.1 mg/dL Magnesium Level 1.60 L 1.80-2.40 mg/dL Whole Blood Glucose 160 #H 70-110 MG/DL Urine Color LIGHT-YELLOW YELLOW Urine Appearance CLEAR CLEAR Urine pH 6.5 5.0-8.0 Urine Specific [place] 1.022 1.001-1.031 Urine Protein NEGATIVE NEGATIVE mg/dL Urine Glucose (UA) >=1000 H NEGATIVE mg/dL Urine Ketones NEGATIVE NEGATIVE mg/dL Urine Occult Blood NEGATIVE NEGATIVE Urine Nitrate NEGATIVE NEGATIVE Urine Bilirubin NEGATIVE NEGATIVE mg/dL Urine Urobilinogen 0.2 0.2-1.0 mg/dL Urine Leukocyte Esterase NEGATIVE NEGATIVE Derick/uL Urine RBC 2-5 H 0-1 /HPF Urine WBC 0-1 0-1 /HPF Urine Bacteria RARE None Seen /HPF Urine Opiates Screen NEGATIVE NEGATIVE Urine Barbiturates Screen NEGATIVE NEGATIVE Urine Phencyclidine Screen NEGATIVE NEGATIVE Urine Amphetamines Screen NEGATIVE NEGATIVE Urine Benzodiazepines Screen NEGATIVE NEGATIVE Urine Cocaine Screen POSITIVE H NEGATIVE Urine Marijuana (THC) Screen NEGATIVE NEGATIVE Test 06/05/25 14:25 Range/Units Erythrocyte Sedimentation Rate 10 0-20 MM/HR Hemoglobin A1c 11.5 H 4.0-6.0 % Estimated Average Glucose (eAG) 283 H 70-126 mg/dL Total Bilirubin 1.1 H 0.2-1.0 mg/dL Direct Bilirubin 0.3 0.0-0.3 mg/dL Aspartate Amino Transf (AST/SGOT) 14 10-37 U/L Alanine Aminotransferase (ALT/SGPT) 24 12-78 U/L Alkaline Phosphatase 108 50-136 U/L C-Reactive Protein, Quantitative 20.30 H 0.5-3.0 mg/L Total Protein 7.5 6.0-8.3 g/dL Albumin 3.6 3.5-5.0 g/dL Procalcitonin < 0.05 L 0.05-0.5 ng/mL Current Medications Medications (Trade) Dose Ordered Sig/Jenifer Route PRN Reason Start Time Stop Time Status Last Admin Dose Admin Acetaminophen (TYLenol 325MG TAB) 650 mg Q6H PRN PO MILD PAIN (1-3) 06/05/25 17:30 07/05/25 17:29 Cefepime HCl (MAXipime 2 gm vial) 2 gm BID IVPB 06/05/25 21:00 06/15/25 20:59 06/06/25 07:59 2 GM Enoxaparin Sodium (Lovenox) 40 mg DAILY SQ 06/06/25 09:00 07/06/25 08:59 06/06/25 07:59 40 MG Famotidine (Pepcid 20mg Tab) 20 mg BID PO 06/05/25 21:00 07/05/25 20:59 06/06/25 07:59 20 MG Gabapentin (NEURontin 300 MG CAP) 300 mg HS PO 06/06/25 21:00 07/06/25 20:59 Hydralazine HCl (APRESOLine 20MG INJ) 5 mg Q6H PRN IV ADMINISTER FOR SBP > 160 06/05/25 18:00 07/05/25 17:59 Insulin Glargine (LANtus 100 UNITS/ML 10 ML VIAL) 15 units HS SQ 06/05/25 21:00 07/05/25 20:59 06/05/25 22:46 15 UNITS Insulin Human Regular (humuLIN R 100 UNIT/ML 3ML) INSULIN SLIDING SCAL... ACHS SQ 06/05/25 21:00 07/05/25 20:59 06/05/25 22:46 8 UNIT Lisinopril (Prinivil 10mg) 10 mg DAILY PO 06/06/25 09:00 07/06/25 08:59 Magnesium Sulfate 50 ml @ 0 mls/hr PROTOCOL PRN IV MAGNESIUM PROTOCOL 06/06/25 10:00 07/06/25 09:59 Morphine Sulfate (morPHINE 2MG SYG) 2 mg Q6H PRN IVP SEVERE PAIN (7-10) 06/05/25 17:30 06/12/25 17:29 Ondansetron HCl (zoFRAN 4MG INJ) 4 mg Q6H PRN IVP NAUSEA/VOMITING 06/05/25 17:30 07/05/25 17:29 Piperacillin Sod/ Tazobactam Sod (Zosyn 3.375gm+NS 50ml) 3.375 gm Q12H STAT IV 06/05/25 15:30 06/05/25 15:36 DC 06/05/25 15:46 3.375 GM Sertraline HCl (ZOloft 50 mg tab) 50 mg HS PO 06/06/25 21:00 07/06/25 20:59 Simvastatin (zoCOR) 20 mg HS PO 06/06/25 21:00 07/06/25 20:59 Sodium Chloride 1,000 ml @ 75 mls/hr [id number] IV 06/05/25 17:30 07/05/25 17:29 06/06/25 06:06 75 MLS/HR Vancomycin HCl (Vancomycin 750mg) 750 mg Q8H IVPB 06/05/25 23:30 06/15/25 23:29 06/06/25 06:31 750 MG Vancomycin HCl (Vancomycin Protocol) 1 each AD IV 06/05/25 17:30 06/19/25 17:29 DIAGNOSTICS / RADIOLOGY: PATIENT: KO MAJOR MR#: [id number] : 1970 SEX: M AGE: 54 LOCATION: [facility] ORDER 11 STATUS: REG ER REPORT#: [id number] SERVICE 141 REASON: CELLULITIS ORDERING PHYSICIAN: PAUL ORTIZ MD PROCEDURE: FT 3VW RT - FOOT COMP 3+VWS RT EXAM: CR right foot, 2 View. CLINICAL HISTORY: CELLULITIS COMPARISON: None provided. FINDINGS: BONES: Comminuted displaced fracture involving the head of the proximal phalanx of the first digit extending into the interphalangeal joint. Mild overlying soft tissue swelling. Small posterior calcaneal spur JOINTS: The joint spaces appear within normal limits. No dislocation. SOFT TISSUES: The soft tissues are unremarkable. IMPRESSION: 1. Comminuted displaced fracture of the first digit proximal phalanx head with intra-articular extension and mild soft tissue swelling. /[place] DICTATED BY: GORDO ZELAYA MD DATE: 06/05/251646 ELECTRONICALLY SIGNED BY: GORDO ZELAYA MD DATE: 06/05/251646 PATIENT: KO MAJOR MR#: [id number] : 1970 SEX: M AGE: 54 LOCATION: [facility] ORDER 12 STATUS: ADM IN REPORT#: [id number] SERVICE 09 REASON: assess for any significant pad, right foot ceullitis, Hx of DM II, cocaine ORDERING PHYSICIAN: ALETA MELCHOR MD PROCEDURE: ART B LE - US ARTERIAL BILAT LOW EXT DUPL EXAM: Ultrasound bilateral lower extremity arteries. History: Peripheral arterial disease Technique: Static grayscale and Doppler images were obtained Right side: [employer]PERATOR systolic: 88 cm/s Waveform: Triphasic SFA proximal systolic: 95 cm/s Waveform: Triphasic SFA mid systolic: 91 cm/s Waveform: Triphasic SFA distal systolic: 92 cm/s Waveform triphasic Popliteal artery systolic: 93/90 cm/s Waveform triphasic Posterior tibial artery systolic 88 cm/s Waveform triphasic Dorsalis pedis artery systolic 78 cm/s Waveform triphasic Anterior tibial artery: 66 cm/s. Waveform: Triphasic Plaque formation: Minimal Left side: [employer] OPERATOR systolic: 98 cm/s Waveform: Triphasic SFA proximal systolic: 85 cm/s Waveform: Triphasic SFA mid systolic: 88 cm/s Waveform: Triphasic SFA distal systolic: 69 cm/s Waveform triphasic Popliteal artery systolic: 69/77 cm/s Waveform triphasic Posterior tibial artery systolic 80 cm/s Waveform triphasic Dorsalis pedis artery systolic 40 cm/s Waveform biphasic Anterior tibial artery: 40 cm/s. Waveform: Biphasic Plaque formation: Minimal Impression: No hemodynamically significant stenosis. Normal velocities and multiphasic waveform pattern throughout /[place] DICTATED BY: GORDO ZELAYA MD DATE: 06/05/251857 ELECTRONICALLY SIGNED BY: GORDO ZELAYA MD DATE: 06/05/251857 PATIENT: KO MAJOR MR#: [id number] : 1970 SEX: M AGE: 54 LOCATION: [facility] ORDER 9 STATUS: ADM IN REPORT#: [id number] SERVICE 7 REASON: chest pain ORDERING PHYSICIAN: CONCHITA TAMAYO MD PROCEDURE: CXR2VW - CHEST 2VWS EXAM: XR Chest, AP View. CLINICAL HISTORY: 54-year-old male with chest pain. COMPARISON: None provided. FINDINGS: LUNGS: Bilateral atelectasis in the lower lobes. PLEURAL SPACES: No pleural effusion or pneumothorax. HEART: The heart size is normal. BONES: Mild disease changes. No acute osseous abnormality. IMPRESSION: 1. Bilateral lower lobe atelectasis. 2. No pleural effusion or pneumothorax. /[place] DICTATED BY: NADIR PENNY MD DATE: 06/06/251517 ELECTRONICALLY SIGNED BY: NADIR PENNY MD DATE: 06/06/251517 ASSESSMENT: Progressive cellulitis of the right 1st toe of the right foot, POA Progressive cellulitis with swelling of the right foot, POA Rule out 1st toe fracture of the right foot/acute osteomyelitis of the 1st toe of the right foot, POA History of poorly controlled type 2 diabetes mellitus, POA History of hypertension, POA Tobacco use disorder, POA Cocaine use disorder, POA Hyperlipidemia, POA PLAN: Progressive cellulitis of the right 1st toe of the right foot, POA We will start patient on IV hydration with NS at 75 mL/hour Obtain a MRI of the right foot to rule out osteomyelitis of the 1st digit of the right foot. Podiatry saw the patient and recommended to continue local wound care, they will monitor his progress. Most likely the patient will develop arthritis on this toe. If it does not improve with the mobilization and surgical shoe surgical removal of the head of the proximal phalanx to be done in the near future. Recommended surgical shoe was patient ambulatory. To use the shoes for 4-6 weeks. Due to significant cellulitis noted of the right foot with swelling extending into the distal right leg , infectious disease consulted. Continue IV vancomycin (day 2) and cefepime (day 2) Ordered Uric acid for possible gout. Pro-Calcitonin is 0.05, CRP 20.30. Ordered lactic acid. Blood culture ordered. Awaiting results. Arterial duplex to rule out significant PAD of the right lower extremity was done and showed no stenosis. Xray of right foot showed comminuted displaced fracture of the first digit proximal phalanx head with intra-articular extension and mild soft tissue s welling. History of poorly controlled type 2 diabetes mellitus, POA Start patient on [id number] units at bedtime and continue sliding scale insulin a.c. and HS. HBA1c is 11.5 Consult endocrinology. Urinalysis showed glucose> 1000. Hypomagnesemia Magnesium today was 1.6. Replace according to protocol Hypertension Patient blood pressure today is 143/91 Started on Lisinopril 10 mg OD. Monitor blood pressure Hyperlipidemia Ordered lipid panel Stated on simvastatin Monitor lipid levels Lateral chest pain Patient complains of chest pain on the lateral chest, stared 5 days ago, likely muscular. Ordered chest xray, that shows bilateral lower lobe atelectasis. Ordered spirometry. Ordered lidocaine patch for pain. Cocaine abuse Ordered 2 D Echo due to hx of cocaine use. Results awaited We will keep patient on DVT prophylaxis with Lovenox, GI prophylaxis with Pepcid PHYSICIAN RESIDENT STATEMENT I was present with the resident during the History and Physical exam and I have reviewed the resident's note. This case was discussed with the resident and I agree with the history, physical exam and medical decision making as documented. Additions/exceptions/observations were directly added to the notes. Raúl Colunga MD, SYED M MD Jun 06, 2025 11:18
[2025-06-06] MEDS: LIDOCAINE 4% ADH..PATCH TP ONE (11:31)
--- NOTE | 2025-06-06 12:00 | NUR ---
[facility] Consult: Unable to assess at this time due to patient not in room for procedure. Addendum: 06/06/25 at 1431 by JOÃO GONZÁLES RN RN/NICHOLAS Amended: Links added.
--- NOTE | 2025-06-06 14:19 | HMCIMG ---
EXAM: XR Chest, AP View. CLINICAL HISTORY: 54-year-old male with chest pain. COMPARISON: None provided. FINDINGS: LUNGS: Bilateral atelectasis in the lower lobes. PLEURAL SPACES: No pleural effusion or pneumothorax. HEART: The heart size is normal. BONES: Mild disease changes. No acute osseous abnormality. IMPRESSION: 1. Bilateral lower lobe atelectasis. 2. No pleural effusion or pneumothorax. /[place]
[2025-06-06 15:08] LABS: LDL DIRECT 96 mg/dL (0-99)
--- NOTE | 2025-06-06 16:53 | HMCSR ---
APPROVED REPORT EXAM: Two-dimensional and M-mode echocardiogram with Doppler and color Doppler. INDICATION ICD: hx of cocaine use, r/o cardiomyopathy 2D Dimensions RVDd3.6 cmLVEF(%)45.2 (>50%)LVED Vol(simp.)88.0 mL IVSd1.0 (0.7-1.1cm)FS(%)22 %LVES Vol(simp.)42.0 mL LVDd4.6 (3.8-5.6cm)LA (2D)3.3 (1.6-4.0cm)LVEF(%, simp.)52 % PWd1.0 (0.7-1.1cm)Ao Root(2D)3.1 (2.0-3.7cm)LA ESV INDEX (BP)22.76 mL/m2 LVDs3.6 (2.5-4.0cm)LVOT diam2.3 (1.8-2.4cm) IVC diam2.4 cm Deformation Strain Apical 4-16.6 % Apical 2-16.4 % Apical 3-16.2 % Global Strain-16.4 % M-Mode Dimensions EPSS0.7 cm LA (MM)3.5 (1.6-4.0cm) Ao Root(MM)3.0 (2.0-3.7cm) Aortic Valve AoV Vmax1.2 m/Carter Peak GR5.9 mmHgLVOT Vmax0.7 m/s AoV VTI0.2 mAo Mean GR3.2 mmHgLVOT VTI0.14 m GABINO (VMAX)2.30 cm2AVA (VTI) 2.4 cm2 Mitral Valve MV E Vmax85.4 cm/sDECEL Xrlw516 ms MV A Vmax70.0 cm/sP 1/2 T55 ms E/A ratio1.2MVA (PHT)4.0 cm2 TDI E/E' Zrdssv05.6E/E' Lateral8.6 Medial E' Peak V7.37 cm/sLateral E' Peak V9.89 cm/s Pulmonary Valve PV Vmax0.9 m/sPV VTI0.16 mPV Mean GR2.2 mmHg PV Peak GR3.5 mmHg Left Ventricle The left ventricle is normal size. There is normal left ventricular wall thickness. LVEF is 50-55%. T he left ventricular diastolic function is normal. Right Ventricle The right ventricle is normal size. The right ventricular systolic function is normal. Atria The left atrium size is normal. The right atrium size is normal. Aortic Valve The aortic valve is normal in structure. No aortic regurgitation is present. There is no aortic valvu lar stenosis. Mitral Valve The mitral valve is normal in structure. There is no mitral valve regurgitation noted. There is no mi tral valve stenosis. Tricuspid Valve The tricuspid valve is normal in structure. There is no tricuspid valve regurgitation noted. Pulmonic Valve The pulmonary valve is normal in structure. There is no pulmonic valvular regurgitation. Great Vessels The aortic root is normal in size. The IVC is dilated and collapses >50% with inspiration. Pericardium There is no pericardial effusion. Conclusion The left ventricle is normal size. LVEF is 50-55%. The left ventricular diastolic function is normal. The right ventricle is normal size. The right ventricular systolic function is normal. The left atrium size is normal. The right atrium size is normal. No valvular pathology. There is no pericardial effusion.
--- NOTE | 2025-06-06 16:54 | HMCIMG ---
EXAM: MR RIGHT FOOT WITHOUT CONTRAST CLINICAL HISTORY: 54-year-old male assess for osteomyelitis. TECHNIQUE: Multiplanar multisequence magnetic resonance images were obtained WITHOUT contrast. CONTRAST: None COMPARISON: None FINDINGS: JOINTS: Moderate first metatarsal joint space narrowing with osteophyte formation consistent with mild osteoarthritis. BONE: Bone marrow edema along the distal aspect of the proximal phalanx of the first digit with chronic fractures seen. The bone marrow edema of the proximal phalanx can be seen in osteomyelitis as well. Correlate clinically. SOFT TISSUES: Extensive soft tissue edema of the muscles and subcutaneous soft tissues of the forefoot consistent with myositis and cellulitis. No definite focal fluid collection or abscess. IMPRESSION: 1. Extensive soft tissue edema of the forefoot consistent with myositis and cellulitis. No definite focal fluid collection or abscess. 2. Bone marrow edema along the distal aspect of the proximal phalanx of the first digit with chronic fractures. The bone marrow edema can be seen in osteomyelitis as well. Correlate clinically. 3. Moderate first metatarsal joint space narrowing with osteophyte formation, consistent with mild osteoarthritis. /[place]
[2025-06-06] MEDS: VANCOMYCIN 1.25 GM/250 ML BAG 250 ML IV SCH (18:39)
[2025-06-06] MEDS: GABAPENTIN 300 MG CAPSULE PO SCH (20:58)
[2025-06-07] VITALS (7 sets, daily range): BP systolic 122–155; BP diastolic 77–87; PULSE 80–97; RESP 17–20; TEMP 97.8–98.5; O2SAT 96–97
[2025-06-07 06:16] LABS: IMMATURE GRANULOCYTE ABSOLUTE 0.03 K/uL (0-1); NUCLEATED RED BLOOD CELLS 0.0 % (0.0-0.19); PLATELET COUNT (AUTO) 207 K/uL (130-400); RED BLOOD CELL COUNT(AUTO) 4.81 MIL/uL (4.50-6.20); RED CELL DISTRIBUTION WIDTH 12.1 % (11.0-15.5); WHITE BLOOD COUNT (AUTO) 8.9 K/uL (4.8-10.8)
[2025-06-07 07:29] LABS: CREATININE 0.6 mg/dL (0.5-1.3); GLOMERULAR FILTR. RATE CALC 115.0 mL/min (>90); GLUCOSE,RANDOM 240.0 mg/dL (70-105); SODIUM SERUM 137.0 mmol/L (136-145); UREA NITROGEN, BLOOD 16.0 mg/dL (7-18)
--- NOTE | 2025-06-07 08:37 | CONS ---
INFECTIOUS DISEASE CONSULTATION NOTE DATE OF SERVICE: 06/06/2025. REQUESTING PHYSICIAN: Eusebio Daniel MD REASON FOR CONSULTATION: Possible right greater toe osteomyelitis. HISTORY OF PRESENT ILLNESS: A 54-year-old male with history of alcohol abuse, cocaine abuse, and current tobacco use, presented to the hospital with right great toe pain, swelling and redness. He has also an injury to the right great toe. Noticed increased pain and swelling and came to the emergency room. X-ray has been done, which shows comminuted fracture. MRI has been done, but official report is pending. The patient also found with erythema involving the dorsum of the right foot. The patient has been started on vancomycin and cefepime. The patient uses tobacco and cocaine was positive. PAST MEDICAL HISTORY: * Diabetes mellitus. * Hypertension. * Cocaine abuse. * Current tobacco use. PAST SURGICAL HISTORY: Denied. ALLERGIES: No known drug allergies. CURRENT MEDICATIONS: Include: * Vancomycin. * Cefepime. * Insulin. * Tylenol. * Folic acid. SOCIAL HISTORY: The patient uses tobacco and cocaine. FAMILY HISTORY: Positive for diabetes mellitus. REVIEW OF SYSTEMS: Greater than 10 systems were reviewed and negative except as documented above. PHYSICAL EXAMINATION: GENERAL: Middle-aged male, awake. VITAL SIGNS: Temperature 98.1, pulse 86, respirations 16, BP 143/91. EYES: No icterus. Pupils equal and reactive. HENT: No oral thrush seen. Moist oral mucosa. NECK: Supple. No JVD or thyromegaly. LUNGS: Good air entry. No rales, no rhonchi. CARDIOVASCULAR SYSTEM: S1 and S2 regular. No murmur heard. ABDOMEN: Full, soft, nontender. Bowel sounds are present. CENTRAL NERVOUS SYSTEM: Awake, alert, oriented x 3. No focal deficits. SKIN: No rashes, no itchiness. LYMPHATIC: No peripheral lymphadenopathy. BACK: No deformity, no pressure ulcer. EXTREMITIES: Tenderness and erythema involving the right great toe. No fluctuancy LABORATORY DATA: Sodium 140, potassium 4.0, BUN 17, creatinine 0.7. WBC 10.7, hemoglobin 14.9, platelets 205. Urine toxicology positive for cocaine. RADIOLOGY: X-ray of the right foot shows first digit comminuted fracture. ASSESSMENT: A 54-year-old male presented with right great toe pain, swelling and redness. CURRENT PROBLEMS: Include: * Right foot cellulitis. * Right great toe comminuted fracture. * Hypertension. * Diabetes mellitus. * Leukocytosis. * Cocaine abuse. * Current tobacco use. PLAN: * Followup MRI result. * Continue vancomycin. * Continue cefepime. * Continue antihypertensive. * Continue antidiabetic. * Continue nutritional support. * Monitor electrolyte. * Monitor renal function. * The patient will be followed up closely. Thank you for allowing me to participate in the care of this patient. TID: [id number] RECEIPT: [id number]
[2025-06-07] MEDS: LACTULOSE 20 GM/30 ML UDCUP PO ONE (12:17)
[2025-06-07] MEDS: LIDOCAINE 4% ADH..PATCH TP ONE (12:17)
--- NOTE | 2025-06-07 14:10 | NUR ---
[facility] Follow-up: Patient re-assessed by wound healing team. No open wounds to right foot, cellulitis and edema noted. Education provided to patient. Addendum: 06/08/25 at 0900 by JOÃO GONZÁLES RN RN/NICHOLAS Amended: Links added.
--- NOTE | 2025-06-07 14:43 | PN ---
INFECTIOUS DISEASE PROGRESS NOTE Date of Service: Jun 07, 2025 SUBJECTIVE: This 54 year old male patient is being seen today at bedside. He is awake, alert and oriented x3. No fever or chills. No nausea or vomiting. He denies pain at this time. Patient is laying in bed. Calm. No acute events reported by nurse at this visit. MRI was reviewed with supervising physician. Patient remains on vancomycin and cefepime. PHYSICAL EXAM EYES: Anicteric. Pupils equal and reactive. HENT: No oral thrush seen, moist Oral mucosa NECK: Supple, no JVD or thyromegaly. LUNGS: Good air entry. No rales, no rhonchi. CARDIOVASCULAR: S1, S2 regular. No murmur heard. ABDOMEN: Soft, non tender, bowel sounds present, no organomegaly CENTRAL NERVOUS SYSTEM: Awake, alert, oriented x 3. No focal deficits. SKIN: No rashes, no swelling. LYMPHATICS: No peripheral lymphadenopathy MUSCULOSKELETAL: No joint swelling, erythema or tenderness. EXTREMITIES: Tenderness and erythema involving the right great toe. BACK: No deformity, no pressure ulcer. GENITOURINARY: No dysuria or hematuria Vital Sign (Last 12 Hours) 06/07/25 06/07/25 06/07/25 04:00 08:00 12:00 Temp 98.1 97.9 97.9 Pulse 80 91 87 Resp 20 17 18 B/P (MAP) 155/77 126/87 141/81 Pulse Ox 96 96 97 O2 Delivery Room Air Room Air Room Air Intake & Output (last 24hrs) 06/06/25 06/06/25 06/07/25 15:00 23:00 07:00 Intake Total 500 ml Balance 500 ml LABS: Laboratory: Test 06/07/25 11:16 06/07/25 05:23 06/06/25 14:40 06/06/25 09:48 Range/Units Whole Blood Glucose 209 H 70-110 MG/DL White Blood Count 8.9 4.8-10.8 K/uL Red Blood Count 4.81 4.50-6.20 MIL/uL Hemoglobin 14.8 14.0-18.0 g/dL Hematocrit 42.3 42-54 % Mean Corpuscular Volume 87.9 79-99 fL Mean Corpuscular Hemoglobin 30.8 27.0-33.0 pg Mean Corpuscular Hemoglobin Concent 35.0 32.0-36.0 g/dL Red Cell Distribution Width 12.1 11.0-15.5 % Platelet Count 207 130-400 K/uL Mean Platelet Volume 9.3 7.5-10.5 fL Immature Granulocyte % (Auto) 0.3 0-1 % Neutrophils (%) (Auto) 64.4 40.0-77.0 % Lymphocytes (%) (Auto) 24.0 21.0-51.0 % Monocytes (%) (Auto) 7.8 3.0-13.0 % Eosinophils (%) (Auto) 3.2 0.0-8.0 % Basophils (%) (Auto) 0.3 0.0-5.0 % Neutrophils # (Auto) 5.7 1.8-7.7 K/uL Lymphocytes # (Auto) 2.1 1.0-4.8 K/uL Monocytes # (Auto) 0.7 0.1-1.0 K/uL Eosinophils # (Auto) 0.29 0.00-0.70 K/uL Basophils # (Auto) 0.03 0.00-0.20 K/uL Absolute Immature Granulocyte (auto 0.03 0-1 K/uL Nucleated Red Blood Cells 0.0 0.0-0.19 % Sodium Level 137 136-145 mmol/L Potassium Level 3.7 3.5-5.1 mmol/L Chloride Level 103 101-111 mmol/L Carbon Dioxide Level 28 21-32 mmol/L Blood Urea Nitrogen 16 7-18 mg/dL Creatinine 0.6 0.5-1.3 mg/dL Glomerular Filtration Rate Calc 115 >90 mL/min Random Glucose 240 H 70-105 mg/dL Total Calcium 8.0 L 8.5-10.1 mg/dL Magnesium Level 1.80 1.80-2.40 mg/dL Triglycerides Level 137 30-200 mg/dL Cholesterol Level 152 <200 mg/dL LDL Cholesterol 96 0-99 mg/dL HDL Cholesterol 42 29-71 mg/dL Vancomycin Level Trough 7.5 L 10.0-20.0 UG/ML Lactic Acid Level 0.9 0.8-2.5 mmol/L Uric Acid 3.3 2.6-7.2 mg/dL Test 06/05/25 23:44 Range/Units Urine Color LIGHT-YELLOW YELLOW Urine Appearance CLEAR CLEAR Urine pH 6.5 5.0-8.0 Urine Specific [place] 1.022 1.001-1.031 Urine Protein NEGATIVE NEGATIVE mg/dL Urine Glucose (UA) >=1000 H NEGATIVE mg/dL Urine Ketones NEGATIVE NEGATIVE mg/dL Urine Occult Blood NEGATIVE NEGATIVE Urine Nitrate NEGATIVE NEGATIVE Urine Bilirubin NEGATIVE NEGATIVE mg/dL Urine Urobilinogen 0.2 0.2-1.0 mg/dL Urine Leukocyte Esterase NEGATIVE NEGATIVE Derick/uL Urine RBC 2-5 H 0-1 /HPF Urine WBC 0-1 0-1 /HPF Urine Bacteria RARE None Seen /HPF Urine Opiates Screen NEGATIVE NEGATIVE Urine Barbiturates Screen NEGATIVE NEGATIVE Urine Phencyclidine Screen NEGATIVE NEGATIVE Urine Amphetamines Screen NEGATIVE NEGATIVE Urine Benzodiazepines Screen NEGATIVE NEGATIVE Urine Cocaine Screen POSITIVE H NEGATIVE Urine Marijuana (THC) Screen NEGATIVE NEGATIVE DIAGNOSTICS / RADIOLOGY: EXAM: MR RIGHT FOOT WITHOUT CONTRAST CLINICAL HISTORY: 54-year-old male assess for osteomyelitis. TECHNIQUE: Multiplanar multisequence magnetic resonance images were obtained WITHOUT contrast. CONTRAST: None COMPARISON: None FINDINGS: JOINTS: Moderate first metatarsal joint space narrowing with osteophyte formation consistent with mild osteoarthritis. BONE: Bone marrow edema along the distal aspect of the proximal phalanx of the first digit with chronic fractures seen. The bone marrow edema of the proximal phalanx can be seen in osteomyelitis as well. Correlate clinically. SOFT TISSUES: Extensive soft tissue edema of the muscles and subcutaneous soft tissues of the forefoot consistent with myositis and cellulitis. No definite focal fluid collection or abscess. IMPRESSION: 1. Extensive soft tissue edema of the forefoot consistent with myositis and cellulitis. No definite focal fluid collection or abscess. 2. Bone marrow edema along the distal aspect of the proximal phalanx of the first digit with chronic fractures. The bone marrow edema can be seen in osteomyelitis as well. Correlate clinically. 3. Moderate first metatarsal joint space narrowing with osteophyte formation, consistent with mild osteoarthritis. ASSESSMENT: * Right foot cellulitis. * Right great toe comminuted fracture. * Hypertension. * Diabetes mellitus. * Leukocytosis. * Cocaine abuse. * Current tobacco use. PLAN: * Continue vancomycin. * Continue cefepime. * Continue antihypertensive. * Continue antidiabetic. * Continue nutritional support. * Monitor electrolyte. * Monitor renal function. * The patient will be followed up closely. This case has been discussed with my supervising physician Dr. Rico. The case has been discussed and agreed upon. PRABHA OMER [facility] Jun 07, 2025 14:43
--- NOTE | 2025-06-07 16:06 | CONS ---
CONSULT NOTE: Endocrinology Consult Chief complaint: right toe and foot redness/swelling Reason for consult:uncontrolled dm-2 DOS:06/07/25 HISTORY OF PRESENT ILLNESS: 54-year-old male with underlying history of poorly controlled type 2 diabetes mellitus, hypertension, chronic tobacco use disorder, history of cocaine use who presented to the ER for further evaluation of progressive redness, swelling of the 1st digit of the right toe with redness extending into the right forefoot and increased swelling of the right foot as well. He has a underlying history of onychomycosis of the toes. Patient reports having history of type 2 diabetes mellitus. He is supposed to be on insulin and metformin as outpatient. He has been noncompliant with insulin therapy for more than a year. He intermittently takes metformin as outpatient. Reports having history of hypertension but has not taken antihypertensives for several months. Presentation to the hospital, patient was noted to be afebrile with T-max of 98.8 F, heart rate of 106, blood pressure of 145/90. Labs on presentation showed WBC count of 8900, hemoglobin 16.3, platelet count of 297452. Remarkable for sodium of 134, potassium 4.0, chloride of 97, creatinine of 0.8, blood glucose of 323, CRP of 20.3. X-ray of the right foot showed comminuted displaced fracture of the 1st digit proximal phalanx with soft tissue swelling intra-articular extension. Podiatry is following. REVIEW OF SYSTEMS CONSTITUTIONAL: Denies fevers, chills, or night sweats. No unintentional weight loss reported. NEUROLOGICAL: Denies headache, amaurosis fugax, motor weakness, sensory deficit, vertigo/spinning sensation, gait abnormalities, or tremors. ENT: No hearing loss, otalgia, otorrhea, rhinitis, rhinorrhea, hoarseness, or sore throat. CARDIOVASCULAR: Denies any exertional angina, dyspnea on exertion, orthopnea, paroxysmal nocturnal dyspnea, palpitations, life-threatening arrhythmias, claudication. PULMONARY: Denies any shortness of breath, cough, phlegm/sputum, hemoptysis, pleuritic chest pain. SLEEP: Denies morning headaches, daytime somnolence or napping. Denies difficulty falling asleep, staying asleep, waking from sleep. Denies knowledge of snoring. GASTROINTESTINAL: Denies any type of dysphagia to either liquids or solids. Denies nausea, vomiting, pyrosis, early satiety, abdominal pain, diarrhea, constipation, or changes in stool consistency or caliber. Denies coffee-ground emesis, hematemesis, hematochezia, or melanotic stools. GENITOURINARY: Denies frequency, urgency, nocturia, hematuria or incontinence (Storage/Irritative symptoms.) Low urinary stream, straining to void, urinary intermittency or hesitancy, splitting of the voiding stream, terminal dribbling. ENDOCRINOLOGIC: Denies polyuria, polydipsia, polyphagia or heat/cold intolerances. HEMATOLOGIC: Denies thrombophilia/previous clots, or coagulopathy/bleeding disorders. ONCOLOGIC: Denies personal history of malignancy. DERMATOLOGIC: Redness and swelling of the right PSYCHIATRIC: Denies any suicidal or homicidal ideation. Denies hallucinations. PAST MEDICAL HISTORY: Hypertension, hyperlipidemia, type 2 diabetes mellitus, history of cocaine use disorder, tobacco use disorder PAST SURGICAL HISTORY: Denies history of major surgical procedure PAST SOCIAL HISTORY: Smokes about a pack of cigarettes in a week for more than 10 years, uses cocaine two to 3 times a week for several years, denies significant alcohol consumption FAMILY HISTORY: Reports family history of type 2 diabetes mellitus Allergies: No known drug allergies Home medications: Reports being on metformin and lisinopril as outpatient Coded Allergies: No Known Drug Allergies (Unverified Allergy, Unknown, 10/15/16) PHYSICAL EXAM GENERAL APPEARANCE: The patient is awake, alert, and oriented, in no acute cardiopulmonary distress. NEUROLOGICAL: Cranial nerves II-XII grossly intact. Motor is 5/5 in bilateral upper and lower extremities proximal to distal. No sensory deficits. HEENT: Face is symmetric. Pupils are equal and reactive. Extraocular movements are intact. NECK: Supple. No JVD. No thyromegaly. No submental, submandibular, pre- /postauricular, occipital or supraclavicular lymphadenopathy. CHEST: Normal chest expansion. No Telemetry. LUNGS: Absence of any rales, rhonchi or any wheezing. CARDIOVASCULAR: Regular. S1 and S2 normal. No appreciable rubs, murmurs or gallops. ABDOMEN: Soft, nontender, and nondistended. There is no rebound, voluntary guarding, or rigidity. : Deferred. No Garcia. EXTREMITIES: Significant redness, erythema and swelling noted of the 1st digit of the right foot, there is erythema extending into the right forefoot and there is swelling noted of the right foot extending into the distal leg SKIN: as noted above DIAGNOSTICS / RADIOLOGY: SERVICE 10 REASON: CELLULITIS ORDERING PHYSICIAN: PAUL ORTIZ MD PROCEDURE: FT 3VW RT - FOOT COMP 3+VWS RT EXAM: CR right foot, 2 View. CLINICAL HISTORY: CELLULITIS COMPARISON: None provided. FINDINGS: BONES: Comminuted displaced fracture involving the head of the proximal phalanx of the first digit extending into the interphalangeal joint. Mild overlying soft tissue swelling. Small posterior calcaneal spur JOINTS: The joint spaces appear within normal limits. No dislocation. SOFT TISSUES: The soft tissues are unremarkable. IMPRESSION: 1. Comminuted displaced fracture of the first digit proximal phalanx head with intra-articular extension and mild soft tissue swelling. /[place] DICTATED BY: GORDO ZELAYA MD DATE: 06/05/251646 ELECTRONICALLY SIGNED BY: GORDO ZELAYA MD DATE: 06/05/251646 ASSESSMENT: History of poorly controlled type 2 diabetes mellitus, POA Home diabetic regimen: Hba1c 11.5% glucose runs greater than 200 mg/dl and insulin adjusted. Progressive cellulitis of the right 1st toe of the right foot, POA Progressive cellulitis with swelling of the right foot, POA podiatry following History of hypertension, POA Tobacco use disorder, POA Cocaine use disorder, POA Hyperlipidemia, POA PLAN: increase lantus to 25 units daily and adjust for fasting glucose. increase Regular insulin to 7 units daily and adjust for post-prandial glucose. Continue medium dose sliding scale insulin. Monitor glucose q x 6 hourly. Continue carb consistent diet. Keep glucose less than 180 mg/dl. Patient will need novolin 70/30 insulin 30 units AM and 15 units PM. Thanks for allowing me to participate in patient care and will continue to follow up. Vital Signs 06/06/25 06/07/25 21:00 12:00 Temp 97.9 Pulse 87 Resp 18 B/P (MAP) 141/81 Pulse Ox 97 O2 Delivery Room Air O2 Flow Rate 0 FiO2 21 Hematology Labs: Test 06/07/25 05:23 Range/Units White Blood Count 8.9 4.8-10.8 K/uL Red Blood Count 4.81 4.50-6.20 MIL/uL Hemoglobin 14.8 14.0-18.0 g/dL Hematocrit 42.3 42-54 % Mean Corpuscular Volume 87.9 79-99 fL Mean Corpuscular Hemoglobin 30.8 27.0-33.0 pg Mean Corpuscular Hemoglobin Concent 35.0 32.0-36.0 g/dL Red Cell Distribution Width 12.1 11.0-15.5 % Platelet Count 207 130-400 K/uL Mean Platelet Volume 9.3 7.5-10.5 fL Immature Granulocyte % (Auto) 0.3 0-1 % Neutrophils (%) (Auto) 64.4 40.0-77.0 % Lymphocytes (%) (Auto) 24.0 21.0-51.0 % Monocytes (%) (Auto) 7.8 3.0-13.0 % Eosinophils (%) (Auto) 3.2 0.0-8.0 % Basophils (%) (Auto) 0.3 0.0-5.0 % Neutrophils # (Auto) 5.7 1.8-7.7 K/uL Lymphocytes # (Auto) 2.1 1.0-4.8 K/uL Monocytes # (Auto) 0.7 0.1-1.0 K/uL Eosinophils # (Auto) 0.29 0.00-0.70 K/uL Basophils # (Auto) 0.03 0.00-0.20 K/uL Absolute Immature Granulocyte (auto 0.03 0-1 K/uL Nucleated Red Blood Cells 0.0 0.0-0.19 % Chemistry Labs: Test 06/07/25 15:24 06/07/25 05:23 06/06/25 14:40 06/06/25 09:48 Range/Units Whole Blood Glucose 147 H 70-110 MG/DL Sodium Level 137 136-145 mmol/L Potassium Level 3.7 3.5-5.1 mmol/L Chloride Level 103 101-111 mmol/L Carbon Dioxide Level 28 21-32 mmol/L Blood Urea Nitrogen 16 7-18 mg/dL Creatinine 0.6 0.5-1.3 mg/dL Glomerular Filtration Rate Calc 115 >90 mL/min Random Glucose 240 H 70-105 mg/dL Total Calcium 8.0 L 8.5-10.1 mg/dL Magnesium Level 1.80 1.80-2.40 mg/dL Triglycerides Level 137 30-200 mg/dL Cholesterol Level 152 <200 mg/dL LDL Cholesterol 96 0-99 mg/dL HDL Cholesterol 42 29-71 mg/dL Lactic Acid Level 0.9 0.8-2.5 mmol/L Uric Acid 3.3 2.6-7.2 mg/dL Current Medications Medications (Trade) Dose Ordered Sig/Jenifer Route Start Time Stop Time Status Last Admin Dose Admin Cefepime HCl (MAXipime 2 gm vial) 2 gm BID IVPB 06/05/25 21:00 06/15/25 20:59 06/07/25 08:08 2 GM Enoxaparin Sodium (Lovenox) 40 mg DAILY SQ 06/06/25 09:00 07/06/25 08:59 06/07/25 08:09 40 MG Famotidine (Pepcid 20mg Tab) 20 mg BID PO 06/05/25 21:00 07/05/25 20:59 06/07/25 08:09 20 MG Gabapentin (NEURontin 300 MG CAP) 300 mg HS PO 06/06/25 21:00 07/06/25 20:59 06/06/25 20:58 300 MG Insulin Glargine (LANtus 100 UNITS/ML 10 ML VIAL) 15 units HS SQ 06/05/25 21:00 07/05/25 20:59 06/06/25 21:01 15 UNITS Insulin Glargine (LANtus 100 UNITS/ML 10 ML VIAL) 25 units DAILY08 SQ 06/07/25 08:00 07/07/25 07:59 06/07/25 08:14 25 UNITS Insulin Human Regular (humuLIN R 100 UNIT/ML 3ML) 5 unit TIDAC SQ 06/07/25 07:30 07/07/25 07:29 06/07/25 12:23 5 UNIT Insulin Human Regular (humuLIN R 100 UNIT/ML 3ML) INSULIN SLIDING SCAL... ACHS SQ 06/05/25 21:00 06/06/25 21:36 DC 06/06/25 21:00 8 UNIT Insulin Human Regular (humuLIN R 100 UNIT/ML 3ML) INSULIN SLIDING SCAL... ACHS SQ 06/07/25 07:30 07/07/25 07:29 06/07/25 12:23 4 UNIT Lisinopril (Prinivil 10mg) 10 mg DAILY PO 06/06/25 09:00 07/06/25 08:59 06/07/25 08:09 10 MG Piperacillin Sod/ Tazobactam Sod (Zosyn 3.375gm+NS 50ml) 3.375 gm Q12H STAT IV 06/05/25 15:30 06/05/25 15:36 DC 06/05/25 15:46 3.375 GM Sertraline HCl (ZOloft 50 mg tab) 50 mg HS PO 06/06/25 21:00 07/06/25 20:59 06/06/25 20:58 50 MG Simvastatin (zoCOR) 20 mg HS PO 06/06/25 21:00 07/06/25 20:59 06/06/25 20:58 20 MG Sodium Chloride 1,000 ml @ 75 mls/hr [id number] IV 06/05/25 17:30 07/05/25 17:29 06/06/25 06:06 75 MLS/HR Vancomycin HCl 250 ml @ 125 mls/hr Q8H IV 06/06/25 17:00 06/16/25 16:59 06/07/25 08:08 125 MLS/HR Vancomycin HCl (Vancomycin 750mg) 750 mg Q8H IVPB 06/05/25 23:30 06/06/25 16:06 DC 06/06/25 06:31 750 MG Vancomycin HCl (Vancomycin Protocol) 1 each AD IV 06/05/25 17:30 06/19/25 17:29 ELISA MAYS MD Jun 07, 2025 16:06
--- NOTE | 2025-06-07 17:25 | PN ---
[facility] PROGRESS NOTE Date of Service: Jun 07, 2025 Time of Service: 17:11 SUBJECTIVE: 54-year-old male with underlying history of poorly controlled type 2 diabetes mellitus, hypertension, chronic tobacco use disorder, history of cocaine use who presented to the ER for further evaluation of progressive redness, swelling of the 1st digit of the right toe with redness extending into the right forefoot and increased swelling of the right foot as well. Symptoms have been ongoing for the past 1-2 days and patient noticed this morning he had erythema of the 1st toe was significantly worse compared to yesterday. Denies any significant trauma or injury to the 1st digit of the right foot. He has a underlying history of onychomycosis of the toes.Patient reports having history of type 2 diabetes mellitus. He is supposed to be on insulin and metformin as outpatient. He has been noncompliant with insulin therapy for more than a year. He intermittently takes metformin as outpatient. Reports having history of hypertension but has not taken antihypertensives for several months.Patient reports smoking a pack of cigarettes in a week for more than 10 years. he uses cocaine as well every 2-3 days for several years as well. Denies any significant alcohol consumption. Presentation to the hospital, patient was noted to be afebrile with T-max of 98.8 F, heart rate of 106, blood pressure of 145/90. Labs on presentation showed WBC count of 8900, hemoglobin 16.3, platelet count of 475175. Remarkable for sodium of 134, potassium 4.0, chloride of 97, creatinine of 0.8, blood glucose of 323, CRP of 20.3. X-ray of the right foot showed comminuted displaced fracture of the 1st digit proximal phalanx with soft tissue swelling intra-articular extension. Patient will be admitted for progress nash right foot/right 1st digit cellulitis, and we will also undergo workup to rule out acute osteomyelitis. Blood glucose will be controlled and patient will be reinstituted antihypertensives and insulin therapy. Consultation with Podiatry will be requested. 06/06/2025: The patient is alert, awake and oriented. There is no pain on the right leg or foot although the patient complains of pain in his left lateral chest wall that he attributes to muscle spasm that developed 5 days ago while he was picking something up. He is given a lidocaine patch for the pain. He is scheduled for an MRI of foot today along with echocardiogram. Patient has a history of non compliance to diabetic and hypertensive medication. His HbA1c is 11.5, therefore endocrinology is consulted. The patient is afebrile and has a WBC of 10.2, hemoglobin of 14.9. His magnesium was 1.60 and was replaced according to protocol. 06/07/2025: The patient is alert, awake and oriented. There is no pain on the right leg or foot. The patient says that the pain in his left lateral chest is improved but requested for another lidocaine patch which was ordered. The patient complains of constipation since past 3 days therefore lactulose were ordered. The patient's echo results came back and was nonsignificant for any pathology. The patient is started on insulin as per Endocrinology review and is continued on cefepime and vancomycin. Infectious diseases is following the patient. REVIEW OF SYSTEMS CONSTITUTIONAL: Denies fevers, chills, or night sweats. No unintentional weight loss reported. NEUROLOGICAL: Denies headache, amaurosis fugax, motor weakness, sensory deficit, vertigo/spinning sensation, gait abnormalities, or tremors. ENT: No hearing loss, otalgia, otorrhea, rhinitis, rhinorrhea, hoarseness, or sore throat. CARDIOVASCULAR: Denies any exertional angina, dyspnea on exertion, orthopnea, paroxysmal nocturnal dyspnea, palpitations, life-threatening arrhythmias, claudication. PULMONARY: Denies any shortness of breath, cough, phlegm/sputum, hemoptysis, pleuritic chest pain. SLEEP: Denies morning headaches, daytime somnolence or napping. Denies difficulty falling asleep, staying asleep, waking from sleep. Denies knowledge of snoring. GASTROINTESTINAL: Denies any type of dysphagia to either liquids or solids. Denies nausea, vomiting, pyrosis, early satiety, abdominal pain, diarrhea, constipation, or changes in stool consistency or caliber. Denies coffee-ground emesis, hematemesis, hematochezia, or melanotic stools. GENITOURINARY: Denies frequency, urgency, nocturia, hematuria or incontinence (Storage/Irritative symptoms.) Low urinary stream, straining to void, urinary intermittency or hesitancy, splitting of the voiding stream, terminal dribbling. ENDOCRINOLOGIC: Denies polyuria, polydipsia, polyphagia or heat/cold intolerances. HEMATOLOGIC: Denies thrombophilia/previous clots, or coagulopathy/bleeding disorders. ONCOLOGIC: Denies personal history of malignancy. DERMATOLOGIC: Redness and swelling of the right PSYCHIATRIC: Denies any suicidal or homicidal ideation. Denies hallucinations. PHYSICAL EXAM GENERAL APPEARANCE: The patient is awake, alert, and oriented, in no acute cardiopulmonary distress. NEUROLOGICAL: Cranial nerves II-XII grossly intact. Motor is 5/5 in bilateral upper and lower extremities proximal to distal. No sensory deficits. HEENT: Face is symmetric. Pupils are equal and reactive. Extraocular movements are intact. NECK: Supple. No JVD. No thyromegaly. No submental, submandibular, pre- /postauricular, occipital or supraclavicular lymphadenopathy. CHEST: Normal chest expansion. No Telemetry. Pain/tenderness on the left lateral chest wall. LUNGS: Absence of any rales, rhonchi or any wheezing. CARDIOVASCULAR: Regular. S1 and S2 normal. No appreciable rubs, murmurs or gallops. ABDOMEN: Soft, nontender, and nondistended. There is no rebound, voluntary guarding, or rigidity. : Deferred. No Garcia. EXTREMITIES: Significant redness, erythema and swelling noted of the 1st digit of the right foot, there is erythema extending into the right forefoot and there is swelling noted of the right foot extending into the distal leg SKIN: as noted above Vital Signs (last 8hr) Date Time Temp Pulse Resp B/P (MAP) Pulse Ox O2 Delivery O2 Flow Rate FiO2 06/07/25 16:07 97.9 85 18 125/78 98 Room Air 06/07/25 12:00 97.9 87 18 141/81 97 Room Air LABS: Laboratory: Test 06/07/25 15:48 06/07/25 15:24 06/07/25 05:23 06/06/25 14:40 Range/Units Vancomycin Level Trough 21.1 #H 10.0-20.0 UG/ML Whole Blood Glucose 147 H 70-110 MG/DL White Blood Count 8.9 4.8-10.8 K/uL Red Blood Count 4.81 4.50-6.20 MIL/uL Hemoglobin 14.8 14.0-18.0 g/dL Hematocrit 42.3 42-54 % Mean Corpuscular Volume 87.9 79-99 fL Mean Corpuscular Hemoglobin 30.8 27.0-33.0 pg Mean Corpuscular Hemoglobin Concent 35.0 32.0-36.0 g/dL Red Cell Distribution Width 12.1 11.0-15.5 % Platelet Count 207 130-400 K/uL Mean Platelet Volume 9.3 7.5-10.5 fL Immature Granulocyte % (Auto) 0.3 0-1 % Neutrophils (%) (Auto) 64.4 40.0-77.0 % Lymphocytes (%) (Auto) 24.0 21.0-51.0 % Monocytes (%) (Auto) 7.8 3.0-13.0 % Eosinophils (%) (Auto) 3.2 0.0-8.0 % Basophils (%) (Auto) 0.3 0.0-5.0 % Neutrophils # (Auto) 5.7 1.8-7.7 K/uL Lymphocytes # (Auto) 2.1 1.0-4.8 K/uL Monocytes # (Auto) 0.7 0.1-1.0 K/uL Eosinophils # (Auto) 0.29 0.00-0.70 K/uL Basophils # (Auto) 0.03 0.00-0.20 K/uL Absolute Immature Granulocyte (auto 0.03 0-1 K/uL Nucleated Red Blood Cells 0.0 0.0-0.19 % Sodium Level 137 136-145 mmol/L Potassium Level 3.7 3.5-5.1 mmol/L Chloride Level 103 101-111 mmol/L Carbon Dioxide Level 28 21-32 mmol/L Blood Urea Nitrogen 16 7-18 mg/dL Creatinine 0.6 0.5-1.3 mg/dL Glomerular Filtration Rate Calc 115 >90 mL/min Random Glucose 240 H 70-105 mg/dL Total Calcium 8.0 L 8.5-10.1 mg/dL Magnesium Level 1.80 1.80-2.40 mg/dL Triglycerides Level 137 30-200 mg/dL Cholesterol Level 152 <200 mg/dL LDL Cholesterol 96 0-99 mg/dL HDL Cholesterol 42 29-71 mg/dL Test 06/06/25 09:48 06/05/25 23:44 Range/Units Lactic Acid Level 0.9 0.8-2.5 mmol/L Uric Acid 3.3 2.6-7.2 mg/dL Urine Color LIGHT-YELLOW YELLOW Urine Appearance CLEAR CLEAR Urine pH 6.5 5.0-8.0 Urine Specific Gonzales 1.022 1.001-1.031 Urine Protein NEGATIVE NEGATIVE mg/dL Urine Glucose (UA) >=1000 H NEGATIVE mg/dL Urine Ketones NEGATIVE NEGATIVE mg/dL Urine Occult Blood NEGATIVE NEGATIVE Urine Nitrate NEGATIVE NEGATIVE Urine Bilirubin NEGATIVE NEGATIVE mg/dL Urine Urobilinogen 0.2 0.2-1.0 mg/dL Urine Leukocyte Esterase NEGATIVE NEGATIVE Derick/uL Urine RBC 2-5 H 0-1 /HPF Urine WBC 0-1 0-1 /HPF Urine Bacteria RARE None Seen /HPF Urine Opiates Screen NEGATIVE NEGATIVE Urine Barbiturates Screen NEGATIVE NEGATIVE Urine Phencyclidine Screen NEGATIVE NEGATIVE Urine Amphetamines Screen NEGATIVE NEGATIVE Urine Benzodiazepines Screen NEGATIVE NEGATIVE Urine Cocaine Screen POSITIVE H NEGATIVE Urine Marijuana (THC) Screen NEGATIVE NEGATIVE Current Medications Medications (Trade) Dose Ordered Sig/Jenifer Route PRN Reason Start Time Stop Time Status Last Admin Dose Admin Acetaminophen (TYLenol 325MG TAB) 650 mg Q6H PRN PO MILD PAIN (1-3) 06/05/25 17:30 07/05/25 17:29 Cefepime HCl (MAXipime 2 gm vial) 2 gm BID IVPB 06/05/25 21:00 06/15/25 20:59 06/07/25 08:08 2 GM Enoxaparin Sodium (Lovenox) 40 mg DAILY SQ 06/06/25 09:00 07/06/25 08:59 06/07/25 08:09 40 MG Famotidine (Pepcid 20mg Tab) 20 mg BID PO 06/05/25 21:00 07/05/25 20:59 06/07/25 08:09 20 MG Gabapentin (NEURontin 300 MG CAP) 300 mg HS PO 06/06/25 21:00 07/06/25 20:59 06/06/25 20:58 300 MG Hydralazine HCl (APRESOLine 20MG INJ) 5 mg Q6H PRN IV ADMINISTER FOR SBP > 160 06/05/25 18:00 07/05/25 17:59 Insulin Glargine (LANtus 100 UNITS/ML 10 ML VIAL) 15 units HS SQ 06/05/25 21:00 07/05/25 20:59 06/06/25 21:01 15 UNITS Insulin Glargine (LANtus 100 UNITS/ML 10 ML VIAL) 25 units DAILY08 SQ 06/07/25 08:00 07/07/25 07:59 06/07/25 08:14 25 UNITS Insulin Human Regular (humuLIN R 100 UNIT/ML 3ML) 5 unit TIDAC SQ 06/07/25 07:30 07/07/25 07:29 06/07/25 12:23 5 UNIT Insulin Human Regular (humuLIN R 100 UNIT/ML 3ML) INSULIN SLIDING SCAL... ACHS SQ 06/05/25 21:00 06/06/25 21:36 DC 06/06/25 21:00 8 UNIT Insulin Human Regular (humuLIN R 100 UNIT/ML 3ML) INSULIN SLIDING SCAL... ACHS SQ 06/07/25 07:30 07/07/25 07:29 06/07/25 12:23 4 UNIT Lisinopril (Prinivil 10mg) 10 mg DAILY PO 06/06/25 09:00 07/06/25 08:59 06/07/25 08:09 10 MG Magnesium Sulfate 50 ml @ 0 mls/hr PROTOCOL PRN IV MAGNESIUM PROTOCOL 06/06/25 10:00 07/06/25 09:59 Morphine Sulfate (morPHINE 2MG SYG) 2 mg Q6H PRN IVP SEVERE PAIN (7-10) 06/05/25 17:30 06/12/25 17:29 Ondansetron HCl (zoFRAN 4MG INJ) 4 mg Q6H PRN IVP NAUSEA/VOMITING 06/05/25 17:30 07/05/25 17:29 Piperacillin Sod/ Tazobactam Sod (Zosyn 3.375gm+NS 50ml) 3.375 gm Q12H STAT IV 06/05/25 15:30 06/05/25 15:36 DC 06/05/25 15:46 3.375 GM Sertraline HCl (ZOloft 50 mg tab) 50 mg HS PO 06/06/25 21:00 07/06/25 20:59 06/06/25 20:58 50 MG Simvastatin (zoCOR) 20 mg HS PO 06/06/25 21:00 07/06/25 20:59 06/06/25 20:58 20 MG Sodium Chloride 1,000 ml @ 75 mls/hr [id number] IV 06/05/25 17:30 07/05/25 17:29 06/06/25 06:06 75 MLS/HR Vancomycin HCl 250 ml @ 125 mls/hr Q8H IV 06/06/25 17:00 06/07/25 16:51 DC 06/07/25 08:08 125 MLS/HR Vancomycin HCl 250 ml @ 125 mls/hr Q8H IV 06/08/25 02:00 06/18/25 01:59 Vancomycin HCl (Vancomycin 750mg) 750 mg Q8H IVPB 06/05/25 23:30 06/06/25 16:06 DC 06/06/25 06:31 750 MG Vancomycin HCl (Vancomycin Protocol) 1 each AD IV 06/05/25 17:30 06/19/25 17:29 DIAGNOSTICS / RADIOLOGY: PATIENT: KO MAJOR MR#: [id number] : 1970 SEX: M AGE: 54 LOCATION: [facility] ORDER 17 STATUS: ADM IN REPORT#: [id number] SERVICE 15 REASON: assess for osteomyelitis of 1st digit of right foot, progressive cellulitis ORDERING PHYSICIAN: ALETA MELCHOR MD PROCEDURE: FT RT WO - MR FOOT RIGHT WO EXAM: MR RIGHT FOOT WITHOUT CONTRAST CLINICAL HISTORY: 54-year-old male assess for osteomyelitis. TECHNIQUE: Multiplanar multisequence magnetic resonance images were obtained WITHOUT contrast. CONTRAST: None COMPARISON: None FINDINGS: JOINTS: Moderate first metatarsal joint space narrowing with osteophyte formation consistent with mild osteoarthritis. BONE: Bone marrow edema along the distal aspect of the proximal phalanx of the first digit with chronic fractures seen. The bone marrow edema of the proximal phalanx can be seen in osteomyelitis as well. Correlate clinically. SOFT TISSUES: Extensive soft tissue edema of the muscles and subcutaneous soft tissues of the forefoot consistent with myositis and cellulitis. No definite focal fluid collection or abscess. IMPRESSION: 1. Extensive soft tissue edema of the forefoot consistent with myositis and cellulitis. No definite focal fluid collection or abscess. 2. Bone marrow edema along the distal aspect of the proximal phalanx of the first digit with chronic fractures. The bone marrow edema can be seen in osteomyelitis as well. Correlate clinically. 3. Moderate first metatarsal joint space narrowing with osteophyte formation, consistent with mild osteoarthritis. /Mobile DICTATED BY: NADRI PENNY MD DATE: 06/06/251752 ELECTRONICALLY SIGNED BY: NADIR PENNY MD DATE: 06/06/251752 PATIENT: KO MAJOR MR#: [id number] : 1970 SEX: M AGE: 54 LOCATION: [facility] ORDER 2 STATUS: ADM IN REPORT#: [id number] SERVICE 1 REASON: hx of cocaine use, r/o cardiomyopathy ORDERING PHYSICIAN: ALETA MELCHOR MD PROCEDURE: ECHO CMP - ECHO 2-D COMPLETE APPROVED REPORT EXAM: Two-dimensional and M-mode echocardiogram with Doppler and color Doppler. INDICATION ICD: hx of cocaine use, r/o cardiomyopathy 2D Dimensions RVDd 3.6 cm LVEF(%) 45.2 (>50%) LVED Vol(simp.) 88.0 mL IVSd 1.0 (0.7-1.1cm) FS(%) 22 % LVES Vol(simp.) 42.0 mL LVDd 4.6 (3.8-5.6cm) LA (2D) 3.3 (1.6-4.0cm) LVEF(%, simp.) 52 % PWd 1.0 (0.7-1.1cm) Ao Root(2D) 3.1 (2.0-3.7cm) LA ESV INDEX (BP) 22.76 mL/m2 LVDs 3.6 (2.5-4.0cm) LVOT diam 2.3 (1.8-2.4cm) IVC diam 2.4 cm Deformation Strain Apical 4 -16.6 % Apical 2 -16.4 % Apical 3 -16.2 % Global Strain -16.4 % M-Mode Dimensions EPSS 0.7 cm LA (MM) 3.5 (1.6-4.0cm) Ao Root(MM) 3.0 (2.0-3.7cm) Aortic Valve AoV Vmax 1.2 m/s Ao Peak GR 5.9 mmHg LVOT Vmax 0.7 m/s AoV VTI 0.2 m Ao Mean GR 3.2 mmHg LVOT VTI 0.14 m GABINO (VMAX) 2.30 cm2 GABINO (VTI) 2.4 cm2 Mitral Valve MV E Vmax 85.4 cm/s DECEL Time 163 ms MV A Vmax 70.0 cm/s P 1/2 T 55 ms E/A ratio 1.2 MVA (PHT) 4.0 cm2 TDI E/E' Medial 11.6 E/E' Lateral 8.6 Medial E' Peak V 7.37 cm/s Lateral E' Peak V 9.89 cm/s Pulmonary Valve PV Vmax 0.9 m/s PV VTI 0.16 m PV Mean GR 2.2 mmHg PV Peak GR 3.5 mmHg Left Ventricle The left ventricle is normal size. There is normal left ventricular wall thickness. LVEF is 50-55%. The left ventricular diastolic function is normal. Right Ventricle The right ventricle is normal size. The right ventricular systolic function is normal. Atria The left atrium size is normal. The right atrium size is normal. Aortic Valve The aortic valve is normal in structure. No aortic regurgitation is present. There is no aortic valvular stenosis. Mitral Valve The mitral valve is normal in structure. There is no mitral valve regurgitation noted. There is no mitral valve stenosis. Tricuspid Valve The tricuspid valve is normal in structure. There is no tricuspid valve regurgitation noted. Pulmonic Valve The pulmonary valve is normal in structure. There is no pulmonic valvular regurgitation. Great Vessels The aortic root is normal in size. The IVC is dilated and collapses >50% with inspiration. Pericardium There is no pericardial effusion. Conclusion The left ventricle is normal size. LVEF is 50-55%. The left ventricular diastolic function is normal. The right ventricle is normal size. The right ventricular systolic function is normal. The left atrium size is normal. The right atrium size is normal. No valvular pathology. There is no pericardial effusion. DICTATED BY: JOHNNY BROWN MD DATE: 06/06/25 1040 ELECTRONICALLY SIGNED BY: JOHNNY BROWN MD DATE: 06/06/25 6728 ASSESSMENT: Progressive cellulitis of the right 1st toe of the right foot, POA Progressive cellulitis with swelling of the right foot, POA Rule out 1st toe fracture of the right foot/acute osteomyelitis of the 1st toe of the right foot, POA History of poorly controlled type 2 diabetes mellitus, POA History of hypertension, POA Tobacco use disorder, POA Cocaine use disorder, POA Hyperlipidemia, POA PLAN: Progressive cellulitis of the right 1st toe of the right foot, POA On IV hydration with NS at 75 mL/hour Obtained a MRI of the right foot to rule out osteomyelitis of the 1st digit of the right foot. The MRI showed extensive soft tissue edema of the forefoot consistent with myositis and cellulitis. No definite focal fluid collection or abscess. Bone marrow edema along the distal aspect of the proximal phalanx of t he first digit with chronic fractures. The bone marrow edema can be seen in osteomyelitis as well. Correlate clinically. Moderate first metatarsal joint space narrowing with osteophyte formation, consistent with mild osteoarthritis. Podiatry saw the patient and recommended to continue local wound care, they will monitor his progress. Most likely the patient will develop arthritis on this toe. If it does not improve with the mobilization and surgical shoe surgical removal of the head of the proximal phalanx to be done in the near future. Recommended surgical shoe was patient ambulatory. To use the shoes for 4-6 weeks. Due to significant cellulitis noted of the right foot with swelling extending into the distal right leg , infectious disease consulted. Continue IV vancomycin (day 3) and cefepime (day 3) Uric acid is 3.3. Lactic acid 0.9 Blood culture ordered. No growth for 24 hrs. Arterial duplex to rule out significant PAD of the right lower extremity was done and showed no stenosis. Xray of right foot showed comminuted displaced fracture of the first digit proximal phalanx head with intra-articular extension and mild soft tissue swelling. History of poorly controlled type 2 diabetes mellitus, POA Start patient on [id number] units at bedtime and continue sliding scale insulin a.c. and HS. HBA1c is 11.5 Endocrinology started the patient on 25 Units Insulin Glargine and 5% Units Regular Insulin. Urinalysis showed glucose> 1000. Monitor glucose. Hypomagnesemia Magnesium today was 1.8. Replace according to protocol Hypertension Patient blood pressure today is 155/77 Started on Lisinopril 10 mg OD. Monitor blood pressure Hyperlipidemia Ordered lipid panel. TG 137, Cholesterol 152, LDL 96, HDL 42. Stated on simvastatin Monitor lipid levels. Lateral chest pain Patient complains of chest pain on the lateral chest, stared 5 days ago, likely muscular. Ordered chest xray, that shows bilateral lower lobe atelectasis. Ordered spirometry. Ordered lidocaine patch for pain. Cocaine abuse Ordered 2 D Echo due to hx of cocaine use. Echo shows no significant abnormality with LVEF of 50-55% Constipation The patient is complaining of constipation since past 3 days. Started on lactulose. We will keep patient on DVT prophylaxis with Lovenox, GI prophylaxis with Pepcid PHYSICIAN RESIDENT STATEMENT I was present with the resident during the History and Physical exam and I have reviewed the resident's note. This case was discussed with the resident and I agree with the history, physical exam and medical decision making as documented. Additions/exceptions/observations were directly added to the notes. Raúl Colunga MD, SYED M MD Jun 07, 2025 17:25
[2025-06-08 00:37] VITALS: BP 111/64; PULSE 93; RESP 18; TEMP 98.4
[2025-06-08] MEDS: VANCOMYCIN 1G/250ML KIT 250 ML IV SCH (02:25)
[2025-06-08 04:00] VITALS: BP 121/70; PULSE 78; RESP 18; TEMP 98.2
[2025-06-08 06:17] LABS: IMMATURE GRANULOCYTE ABSOLUTE 0.05 K/uL (0-1); NUCLEATED RED BLOOD CELLS 0.0 % (0.0-0.19); PLATELET COUNT (AUTO) 225 K/uL (130-400); RED BLOOD CELL COUNT(AUTO) 4.74 MIL/uL (4.50-6.20); RED CELL DISTRIBUTION WIDTH 12.2 % (11.0-15.5); WHITE BLOOD COUNT (AUTO) 9.0 K/uL (4.8-10.8)
[2025-06-08 06:25] LABS: CREATININE 0.8 mg/dL (0.5-1.3); GLOMERULAR FILTR. RATE CALC 105.0 mL/min (>90); GLUCOSE,RANDOM 142.0 mg/dL (70-105); SODIUM SERUM 140.0 mmol/L (136-145); UREA NITROGEN, BLOOD 12.0 mg/dL (7-18)
[2025-06-08 08:00] VITALS: BP 124/80; PULSE 77; RESP 18; TEMP 97.9; O2SAT 98
[2025-06-08 12:00] VITALS: BP 136/78; PULSE 77; RESP 19; TEMP 98
[2025-06-08] MEDS ORDERED: INSU100I35 SQ (13:07)
[2025-06-08] MEDS ORDERED: CEPH500B PO (13:16)
--- NOTE | 2025-06-08 15:40 | PN ---
INFECTIOUS DISEASE PROGRESS NOTE Date of Service: Jun 08, 2025 SUBJECTIVE: This 54 year old male patient remains on cefepime and vancomycin IV. Has no fever and no chills. No nausea or vomiting. No shortness a breath or chest pain. Denies dysuria hematuria. Once patient is stable and ready for discharge as per primary team patient could go on Keflex p.o. for seven days. We continue to follow. PHYSICAL EXAM EYES: Anicteric. Pupils equal and reactive. HENT: No oral thrush seen, moist Oral mucosa NECK: Supple, no JVD or thyromegaly. LUNGS: Good air entry. No rales, no rhonchi. CARDIOVASCULAR: S1, S2 regular. No murmur heard. ABDOMEN: Soft, non tender, bowel sounds present, no organomegaly CENTRAL NERVOUS SYSTEM: Awake, alert, oriented x 3. No focal deficits. SKIN: No rashes, no swelling. LYMPHATICS: No peripheral lymphadenopathy MUSCULOSKELETAL: No joint swelling, erythema or tenderness. EXTREMITIES: Tenderness and erythema involving the right great toe. BACK: No deformity, no pressure ulcer. GENITOURINARY: No dysuria or hematuria Vital Sign (Last 12 Hours) 06/08/25 06/08/25 06/08/25 04:00 08:00 12:00 Temp 98.2 97.9 98.1 Pulse 78 77 77 Resp 18 18 19 B/P (MAP) 121/70 124/80 136/78 Pulse Ox 95 98 95 O2 Delivery Room Air Room Air Room Air LABS: Laboratory: Test 06/08/25 05:55 06/08/25 05:40 06/08/25 00:57 Range/Units Whole Blood Glucose 143 #H 70-110 MG/DL White Blood Count 9.0 4.8-10.8 K/uL Red Blood Count 4.74 4.50-6.20 MIL/uL Hemoglobin 14.5 14.0-18.0 g/dL Hematocrit 41.0 L 42-54 % Mean Corpuscular Volume 86.5 79-99 fL Mean Corpuscular Hemoglobin 30.6 27.0-33.0 pg Mean Corpuscular Hemoglobin Concent 35.4 32.0-36.0 g/dL Red Cell Distribution Width 12.2 11.0-15.5 % Platelet Count 225 130-400 K/uL Mean Platelet Volume 9.3 7.5-10.5 fL Immature Granulocyte % (Auto) 0.6 0-1 % Neutrophils (%) (Auto) 57.7 40.0-77.0 % Lymphocytes (%) (Auto) 29.6 21.0-51.0 % Monocytes (%) (Auto) 8.6 3.0-13.0 % Eosinophils (%) (Auto) 2.9 0.0-8.0 % Basophils (%) (Auto) 0.6 0.0-5.0 % Neutrophils # (Auto) 5.2 1.8-7.7 K/uL Lymphocytes # (Auto) 2.7 1.0-4.8 K/uL Monocytes # (Auto) 0.8 0.1-1.0 K/uL Eosinophils # (Auto) 0.26 0.00-0.70 K/uL Basophils # (Auto) 0.05 0.00-0.20 K/uL Absolute Immature Granulocyte (auto 0.05 0-1 K/uL Nucleated Red Blood Cells 0.0 0.0-0.19 % Sodium Level 140 136-145 mmol/L Potassium Level 4.0 3.5-5.1 mmol/L Chloride Level 106 101-111 mmol/L Carbon Dioxide Level 30 21-32 mmol/L Blood Urea Nitrogen 12 7-18 mg/dL Creatinine 0.8 0.5-1.3 mg/dL Glomerular Filtration Rate Calc 105 >90 mL/min Random Glucose 142 H 70-105 mg/dL Total Calcium 8.4 L 8.5-10.1 mg/dL Magnesium Level 1.90 1.80-2.40 mg/dL Vancomycin Level Trough 10.5 # 10.0-20.0 UG/ML DIAGNOSTICS / RADIOLOGY: EXAM: MR RIGHT FOOT WITHOUT CONTRAST CLINICAL HISTORY: 54-year-old male assess for osteomyelitis. TECHNIQUE: Multiplanar multisequence magnetic resonance images were obtained WITHOUT contrast. CONTRAST: None COMPARISON: None FINDINGS: JOINTS: Moderate first metatarsal joint space narrowing with osteophyte formation consistent with mild osteoarthritis. BONE: Bone marrow edema along the distal aspect of the proximal phalanx of the first digit with chronic fractures seen. The bone marrow edema of the proximal phalanx can be seen in osteomyelitis as well. Correlate clinically. SOFT TISSUES: Extensive soft tissue edema of the muscles and subcutaneous soft tissues of the forefoot consistent with myositis and cellulitis. No definite focal fluid collection or abscess. IMPRESSION: 1. Extensive soft tissue edema of the forefoot consistent with myositis and cellulitis. No definite focal fluid collection or abscess. 2. Bone marrow edema along the distal aspect of the proximal phalanx of the first digit with chronic fractures. The bone marrow edema can be seen in osteomyelitis as well. Correlate clinically. 3. Moderate first metatarsal joint space narrowing with osteophyte formation, consistent with mild osteoarthritis. ASSESSMENT: * Right foot cellulitis. * Right great toe comminuted fracture. * Hypertension. * Diabetes mellitus. * Leukocytosis. * Cocaine abuse. * Current tobacco use. PLAN: * Continue vancomycin. * Continue cefepime. * Continue antihypertensive. * Continue antidiabetic. * Continue nutritional support. * Monitor electrolyte. * Monitor renal function. * The patient will be followed up closely. * keflex for seven days p.o. once patient is stable to be discharged by primary team This case has been discussed with my supervising physician Dr. Rico. The case has been discussed and agreed upon. PRABHA OMER [facility] Jun 08, 2025 15:40
--- NOTE | 2025-06-08 15:42 | DS ---
Discharge Summary Hospital Course Summary: The patient is a 54-year-old male with a past medical history of type 2 diabetes mellitus, hypertension, hyperlipidemia, onychomycosis, history of cocaine and tobacco use. The patient had a history of poor adherence to his diabetic medications, including insulin and metformin, and has not been consistently taking his antihypertensive medicine. The patient presented in ER with progressive swelling, redness and pain of the right 1st toe for 1-2 days. There was redness noted to the right forefoot and with increased swelling. 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 For the pain he was given a lidocaine patch for 2 days that improved the pain significantly. The patient was admitted for progressive right foot infection swelling. He was started on intravenous vancomycin and cefepime. The patient came with temperature of 98.9 F, heart rate of 106, blood pressure 145/90. His WBC was 8900, hemoglobin 16.3, platelet count of 054669. CRP was increased to 20.3, glucose was 323 and HbA1c of 11.5%. Urinalysis showed glucosuria of the glucose level > 1000, attributed to uncontrolled hype rglycemia. X-ray of the right foot showed comminuted displaced fracture of the 1st digit proximal phalanx head with intra-articular extension and mild soft tissue swelling. MRI of the right foot showed extensive soft tissue edema of the forefoot consistent with myositis and fasciitis. An echocardiogram was performed due to his history of cocaine use and revealed no significant a bnormalities with LVEF of 50-55%. Endocrinology was consulted due to uncontrolled hyperglycemia, and glargine and regular insulin were started. Arterial Doppler of the lower extremity was performed to evaluate for peripheral artery disease that showed no evidence of stenosis. Chest x-ray was negative for any significant finding. Due to his cocaine abuse history, and echocardiography was done that showed an LVEF of 50-55% with no significant abnormality. Uric acid lipid profile ordered were within normal limits. The magnesium was found to be low and was replaced according to protocol. Serum lactate was 0.9, and blood culture showed no growth. During his hospital stay, podiatry was consulted that advised him to continue local wound care. Along this a surgical shoe was provided to assist with ambulation, with the instruction to use it for 4-6 weeks. On discharge the patient was stable and afebrile. He was discharged with instructions for follow-up with Podiatry in 1-2 weeks and his PCP in 2-3 days. He was prescribed insulin 70/30, 30 units AM and 15 units PM, and cephalexin for 10 days. and cephalexin for 10 days Insurance Claims Examiner(s): Infectious Podiatry Procedure(s): PATIENT: KO MAJOR MR#: [id number] : 1970 SEX: M AGE: 54 LOCATION: [facility] ORDER 11 STATUS: REG ER REPORT#: [id number] SERVICE 10 REASON: CELLULITIS ORDERING PHYSICIAN: PAUL ORTIZ MD PROCEDURE: FT 3VW RT - FOOT COMP 3+VWS RT EXAM: CR right foot, 2 View. CLINICAL HISTORY: CELLULITIS COMPARISON: None provided. FINDINGS: BONES: Comminuted displaced fracture involving the head of the proximal phalanx of the first digit extending into the interphalangeal joint. Mild overlying soft tissue swelling. Small posterior calcaneal spur JOINTS: The joint spaces appear within normal limits. No dislocation. SOFT TISSUES: The soft tissues are unremarkable. IMPRESSION: 1. Comminuted displaced fracture of the first digit proximal phalanx head with intra-articular extension and mild soft tissue swelling. /[place] DICTATED BY: GORDO ZELAYA MD DATE: 06/05/251646 ELECTRONICALLY SIGNED BY: GORDO ZELAYA MD DATE: 06/05/251646 PATIENT: KO MAJOR MR#: [id number] : 1970 SEX: M AGE: 54 [facility] 12 STATUS: ADM IN REPORT#: [id number] SERVICE 09 REASON: assess for any significant pad, right foot ceullitis, Hx of DM II, cocaine ORDERING PHYSICIAN: ALETA MELCHOR MD PROCEDURE: ART B LE - US ARTERIAL BILAT LOW EXT DUPL EXAM: Ultrasound bilateral lower extremity arteries. History: Peripheral arterial disease Technique: Static grayscale and Doppler images were obtained Right side: INSULATION CUPOLA OPERATOR systolic: 88 cm/s Waveform: Triphasic SFA proximal systolic: 95 cm/s Waveform: Triphasic SFA mid systolic: 91 cm/s Waveform: Triphasic SFA distal systolic: 92 cm/s Waveform triphasic Popliteal artery systolic: 93/90 cm/s Waveform triphasic Posterior tibial artery systolic 88 cm/s Waveform triphasic Dorsalis pedis artery systolic 78 cm/s Waveform triphasic Anterior tibial artery: 66 cm/s. Waveform: Triphasic Plaque formation: Minimal Left side: INSULATION CUPOLA OPERATOR systolic: 98 cm/s Waveform: Triphasic SFA proximal systolic: 85 cm/s Waveform: Triphasic SFA mid systolic: 88 cm/s Waveform: Triphasic SFA distal systolic: 69 cm/s Waveform triphasic Popliteal artery systolic: 69/77 cm/s Waveform triphasic Posterior tibial artery systolic 80 cm/s Waveform triphasic Dorsalis pedis artery systolic 40 cm/s Waveform biphasic Anterior tibial artery: 40 cm/s. Waveform: Biphasic Plaque formation: Minimal Impression: No hemodynamically significant stenosis. Normal velocities and multiphasic waveform pattern throughout /[place] DICTATED BY: GORDO ZELAYA MD DATE: 06/05/251857 ELECTRONICALLY SIGNED BY: GORDO ZELAYA MD DATE: 06/05/251857 PATIENT: KO MAJOR MR#: [id number] : 1970 SEX: M AGE: 54 LOCATION: [facility] ORDER 17 STATUS: ADM IN REPORT#: [id number] SERVICE 15 REASON: assess for osteomyelitis of 1st digit of right foot, progressive cellulitis ORDERING PHYSICIAN: ALETA MELCHOR MD PROCEDURE: FT RT WO - MR FOOT RIGHT WO EXAM: MR RIGHT FOOT WITHOUT CONTRAST CLINICAL HISTORY: 54-year-old male assess for osteomyelitis. TECHNIQUE: Multiplanar multisequence magnetic resonance images were obtained WITHOUT contrast. CONTRAST: None COMPARISON: None FINDINGS: JOINTS: Moderate first metatarsal joint space narrowing with osteophyte formation consistent with mild osteoarthritis. BONE: Bone marrow edema along the distal aspect of the proximal phalanx of the first digit with chronic fractures seen. The bone marrow edema of the proximal phalanx can be seen in osteomyelitis as well. Correlate clinically. SOFT TISSUES: Extensive soft tissue edema of the muscles and subcutaneous soft tissues of the forefoot consistent with myositis and cellulitis. No definite focal fluid collection or abscess. IMPRESSION: 1. Extensive soft tissue edema of the forefoot consistent with myositis and cellulitis. No definite focal fluid collection or abscess. 2. Bone marrow edema along the distal aspect of the proximal phalanx of the first digit with chronic fractures. The bone marrow edema can be seen in osteomyelitis as well. Correlate clinically. 3. Moderate first metatarsal joint space narrowing with osteophyte formation, consistent with mild osteoarthritis. /[place] DICTATED BY: NADIR PENNY MD DATE: 06/06/251752 ELECTRONICALLY SIGNED BY: NADIR PENNY MD DATE: 06/06/251752 PATIENT: KO MAJOR MR#: [id number] : 1970 SEX: M AGE: 54 LOCATION: [facility] ORDER 9 STATUS: ADM IN REPORT#: [id number] SERVICE 7 REASON: chest pain ORDERING PHYSICIAN: CONCHITA TAMAYO MD PROCEDURE: CXR2VW - CHEST 2VWS EXAM: XR Chest, AP View. CLINICAL HISTORY: 54-year-old male with chest pain. COMPARISON: None provided. FINDINGS: LUNGS: Bilateral atelectasis in the lower lobes. PLEURAL SPACES: No pleural effusion or pneumothorax. HEART: The heart size is normal. BONES: Mild disease changes. No acute osseous abnormality. IMPRESSION: 1. Bilateral lower lobe atelectasis. 2. No pleural effusion or pneumothorax. /[place] DICTATED BY: NADIR PENNY MD DATE: 06/06/251517 ELECTRONICALLY SIGNED BY: NADIR PENNY MD DATE: 06/06/251517 PATIENT: KO MAJOR MR#: [id number] : 1970 SEX: M AGE: 54 LOCATION: [facility] ORDER 2 STATUS: ADM IN REPORT#: [id number] SERVICE REASON: hx of cocaine use, r/o cardiomyopathy ORDERING PHYSICIAN: ALETA MELCHOR MD PROCEDURE: ECHO CMP - ECHO 2-D COMPLETE APPROVED REPORT EXAM: Two-dimensional and M-mode echocardiogram with Doppler and color Doppler. INDICATION ICD: hx of cocaine use, r/o cardiomyopathy 2D Dimensions RVDd 3.6 cm LVEF(%) 45.2 (>50%) LVED Vol(simp.) 88.0 mL IVSd 1.0 (0.7-1.1cm) FS(%) 22 % LVES Vol(simp.) 42.0 mL LVDd 4.6 (3.8-5.6cm) LA (2D) 3.3 (1.6-4.0cm) LVEF(%, simp.) 52 % PWd 1.0 (0.7-1.1cm) Ao Root(2D) 3.1 (2.0-3.7cm) LA ESV INDEX (BP) 22.76 mL/m2 LVDs 3.6 (2.5-4.0cm) LVOT diam 2.3 (1.8-2.4cm) IVC diam 2.4 cm Deformation Strain Apical 4 -16.6 % Apical 2 -16.4 % Apical 3 -16.2 % Global Strain -16.4 % M-Mode Dimensions EPSS 0.7 cm LA (MM) 3.5 (1.6-4.0cm) Ao Root(MM) 3.0 (2.0-3.7cm) Aortic Valve AoV Vmax 1.2 m/s Ao Peak GR 5.9 mmHg LVOT Vmax 0.7 m/s AoV VTI 0.2 m Ao Mean GR 3.2 mmHg LVOT VTI 0.14 m GABINO (VMAX) 2.30 cm2 GABINO (VTI) 2.4 cm2 Mitral Valve MV E Vmax 85.4 cm/s DECEL Time 163 ms MV A Vmax 70.0 cm/s P 1/2 T 55 ms E/A ratio 1.2 MVA (PHT) 4.0 cm2 TDI E/E' Medial 11.6 E/E' Lateral 8.6 Medial E' Peak V 7.37 cm/s Lateral E' Peak V 9.89 cm/s Pulmonary Valve PV Vmax 0.9 m/s PV VTI 0.16 m PV Mean GR 2.2 mmHg PV Peak GR 3.5 mmHg Left Ventricle The left ventricle is normal size. There is normal left ventricular wall thickness. LVEF is 50-55%. The left ventricular diastolic function is normal. Right Ventricle The right ventricle is normal size. The right ventricular systolic function is normal. Atria The left atrium size is normal. The right atrium size is normal. Aortic Valve The aortic valve is normal in structure. No aortic regurgitation is present. There is no aortic valvular stenosis. Mitral Valve The mitral valve is normal in structure. There is no mitral valve regurgitation noted. There is no mitral valve stenosis. Tricuspid Valve The tricuspid valve is normal in structure. There is no tricuspid valve regurgitation noted. Pulmonic Valve The pulmonary valve is normal in structure. There is no pulmonic valvular regurgitation. Great Vessels The aortic root is normal in size. The IVC is dilated and collapses >50% with inspiration. Pericardium There is no pericardial effusion. Conclusion The left ventricle is normal size. LVEF is 50-55%. The left ventricular diastolic function is normal. The right ventricle is normal size. The right ventricular systolic function is normal. The left atrium size is normal. The right atrium size is normal. No valvular pathology. There is no pericardial effusion. DICTATED BY: JOHNNY BROWN MD DATE: 06/06/25 1040 ELECTRONICALLY SIGNED BY: JOHNNY BROWN MD DATE: 06/06/25 1735 Assessment/Plan: ASSESSMENT: Progressive cellulitis of the right 1st toe of the right foot, POA Progressive cellulitis with swelling of the right foot, POA Rule out 1st toe fracture of the right foot/acute osteomyelitis of the 1st toe of the right foot, POA History of poorly controlled type 2 diabetes mellitus, POA History of hypertension, POA Tobacco use disorder, POA Cocaine use disorder, POA Hyperlipidemia, POA Discharge Instructions: Follow with your PCP in 2-3 days Follow-up with Podiatry in 1 week Home Medications: Active Scripts Cephalexin Monohydrate (Keflex) 500 Mg Cap, 1 CAP PO QID for 10 Days, #40 CAP 0 Refills Prov:COCNHITA TAMAYO MD 06/08/25 Insulin NPH Hum/Reg Insulin Hm (Novolin 70-30 Flexpen) 100 Unit/Ml (70-30) Insuln.pen, 15 UNIT SQ ONCE, #450 UNITS Inject 15 units subcutaneously every evening before dinner. Prov:CONCHITA TAMAYO MD 06/08/25 Insulin NPH Hum/Reg Insulin Hm (Novolin 70-30 Flexpen) 100 Unit/Ml (70-30) Insuln.pen, 30 UNIT SQ ONCE, #900 UNITS Inject 30 units subcutaneously every morning before breakfast. Prov:CONCHITA TAMAYO MD 06/08/25 Reported Medications Glipizide (Glipizide) 10 Mg Tablet, 10 MG PO BID, TAB 10/22/16 Simvastatin (Simvastatin) 20 Mg Tablet, 20 MG PO HS, TAB 10/15/16 Gabapentin (Gabapentin) 300 Mg Capsule, 300 MG PO HS, CAP 10/15/16 Sertraline HCl (Sertraline HCl) 50 Mg Tablet, 50 MG PO HS, TAB 10/15/16 Lisinopril (Lisinopril) 10 Mg Tablet, 10 MG PO DAILY, TAB 10/15/16 Metformin HCl (Metformin HCl) 500 Mg Tablet, 500 MG PO BIDLUNCHDINNER, TAB 10/15/16 New Medications: Cephalexin Monohydrate (Keflex) 500 Mg Cap 1 CAP PO QID for 10 Days, #40 CAP 0 Refills Insulin NPH Hum/Reg Insulin Hm (Novolin 70-30 Flexpen) 100 Unit/Ml (70-30) Insuln.pen 30 UNIT SQ ONCE, #900 UNITS Inject 30 units subcutaneously every morning before breakfast. Insulin NPH Hum/Reg Insulin Hm (Novolin 70-30 Flexpen) 100 Unit/Ml (70-30) Insuln.pen 15 UNIT SQ ONCE, #450 UNITS Inject 15 units subcutaneously every evening before dinner. Continued Medications: Gabapentin (Gabapentin) 300 Mg Capsule 300 MG PO HS, CAP Glipizide (Glipizide) 10 Mg Tablet 10 MG PO BID, TAB Lisinopril (Lisinopril) 10 Mg Tablet 10 MG PO DAILY, TAB Metformin HCl (Metformin HCl) 500 Mg Tablet 500 MG PO BIDLUNCHDINNER, TAB Sertraline HCl (Sertraline HCl) 50 Mg Tablet 50 MG PO HS, TAB Simvastatin (Simvastatin) 20 Mg Tablet 20 MG PO HS, TAB Time spent arranging discharge: 1-30 minutes PHYSICIAN RESIDENT STATEMENT I was present with the resident during the History and Physical exam and I have reviewed the resident's note. This case was discussed with the resident and I agree with the history, physical exam and medical decision making as documented. Additions/exceptions/observations were directly added to the notes. Raúl Colunga MD, SYED M MD Jun 08, 2025 15:42
--- NOTE | 2025-06-08 18:05 | PN ---
Endocrinology progress note DOS:06/08/25 subjective: glucose are improving REVIEW OF SYSTEMS CONSTITUTIONAL: Denies fevers, chills, or night sweats. No unintentional weight loss reported. NEUROLOGICAL: Denies headache, amaurosis fugax, motor weakness, sensory deficit, vertigo/spinning sensation, gait abnormalities, or tremors. ENT: No hearing loss, otalgia, otorrhea, rhinitis, rhinorrhea, hoarseness, or sore throat. CARDIOVASCULAR: Denies any exertional angina, dyspnea on exertion, orthopnea, paroxysmal nocturnal dyspnea, palpitations, life-threatening arrhythmias, claudication. PULMONARY: Denies any shortness of breath, cough, phlegm/sputum, hemoptysis, pleuritic chest pain. SLEEP: Denies morning headaches, daytime somnolence or napping. Denies difficulty falling asleep, staying asleep, waking from sleep. Denies knowledge of snoring. GASTROINTESTINAL: Denies any type of dysphagia to either liquids or solids. Denies nausea, vomiting, pyrosis, early satiety, abdominal pain, diarrhea, constipation, or changes in stool consistency or caliber. Denies coffee-ground emesis, hematemesis, hematochezia, or melanotic stools. GENITOURINARY: Denies frequency, urgency, nocturia, hematuria or incontinence (Storage/Irritative symptoms.) Low urinary stream, straining to void, urinary intermittency or hesitancy, splitting of the voiding stream, terminal dribbling. ENDOCRINOLOGIC: Denies polyuria, polydipsia, polyphagia or heat/cold intolerances. HEMATOLOGIC: Denies thrombophilia/previous clots, or coagulopathy/bleeding disorders. ONCOLOGIC: Denies personal history of malignancy. DERMATOLOGIC: Redness and swelling of the right PSYCHIATRIC: Denies any suicidal or homicidal ideation. Denies hallucinations. PAST MEDICAL HISTORY: Hypertension, hyperlipidemia, type 2 diabetes mellitus, history of cocaine use disorder, tobacco use disorder PAST SURGICAL HISTORY: Denies history of major surgical procedure PAST SOCIAL HISTORY: Smokes about a pack of cigarettes in a week for more than 10 years, uses cocaine two to 3 times a week for several years, denies significant alcohol consumption FAMILY HISTORY: Reports family history of type 2 diabetes mellitus Allergies: No known drug allergies Home medications: Reports being on metformin and lisinopril as outpatient Coded Allergies: No Known Drug Allergies (Unverified Allergy, Unknown, 10/15/16) DIAGNOSTICS / RADIOLOGY: SERVICE 1411 REASON: CELLULITIS ORDERING PHYSICIAN: PAUL ORTIZ MD PROCEDURE: FT 3VW RT - FOOT COMP 3+VWS RT EXAM: CR right foot, 2 View. CLINICAL HISTORY: CELLULITIS COMPARISON: None provided. FINDINGS: BONES: Comminuted displaced fracture involving the head of the proximal phalanx of the first digit extending into the interphalangeal joint. Mild overlying soft tissue swelling. Small posterior calcaneal spur JOINTS: The joint spaces appear within normal limits. No dislocation. SOFT TISSUES: The soft tissues are unremarkable. IMPRESSION: 1. Comminuted displaced fracture of the first digit proximal phalanx head with intra-articular extension and mild soft tissue swelling. /[place] DICTATED BY: GORDO ZELAYA MD DATE: 06/05/251646 ELECTRONICALLY SIGNED BY: GORDO ZELAYA MD DATE: 06/05/251646 ASSESSMENT: History of poorly controlled type 2 diabetes mellitus, POA Home diabetic regimen: Hba1c 11.5% glucose runs less than 200 mg/dl and insulin adjusted. Progressive cellulitis of the right 1st toe of the right foot, POA Progressive cellulitis with swelling of the right foot, POA podiatry following History of hypertension, POA Tobacco use disorder, POA Cocaine use disorder, POA Hyperlipidemia, POA PLAN: continue lantus 25 units daily and adjust for fasting glucose. continue Regular insulin 7 units daily and adjust for post-prandial glucose. Continue medium dose sliding scale insulin. Monitor glucose q x 6 hourly. Continue carb consistent diet. Keep glucose less than 180 mg/dl. Patient will need novolin 70/30 insulin 30 units AM and 15 units PM. Vitals/Labs Vital Signs Date Time Temp Pulse Resp B/P (MAP) Pulse Ox O2 Delivery O2 Flow Rate FiO2 06/08/25 12:00 98.1 77 19 136/78 95 Room Air 06/08/25 08:00 0 21 Laboratory Tests 06/08/25 05:40 Medications Current Medications Vancomycin HCl 1 gm ONCE ONCE IV Last administered on 06/05/25at 15:46; Start 06/05/25 at 15:30; Stop 06/05/25 at 15:36; Status DC Piperacillin Sod/ Tazobactam Sod 3.375 gm Q12H STAT IV Last administered on 06/05/25at 15:46; Start 06/05/25 at 15:30; Stop 06/05/25 at 15:36; Status DC Insulin Human Regular 5 unit ONCE ONCE IV Last administered on 06/05/25at 15:47; Start 06/05/25 at 15:30; Stop 06/05/25 at 15:36; Status DC Sodium Chloride 1,000 ml @ 0 mls/hr ONCE ONCE IV Last administered on 06/05/25at 15:45; Start 06/05/25 at 15:30; Stop 06/05/25 at 15:36; Status DC Insulin Human Regular INSULIN SLIDING SCAL... ACHS SQ Last administered on 06/06/25at 21:00; Start 06/05/25 at 21:00; Stop 06/06/25 at 21:36; Status DC Insulin Glargine 15 units HS SQ Last administered on 06/06/25at 21:01; Start 06/05/25 at 21:00; Stop 06/07/25 at 20:05; Status DC Cefepime HCl 2 gm BID IVPB Last administered on 06/08/25at 08:25; Start 06/05/25 at 21:00; Stop 06/15/25 at 20:59 Sodium Chloride 1,000 ml @ 75 mls/hr [id number] IV Last administered on 06/07/25at 21:56; Start 06/05/25 at 17:30; Stop 07/05/25 at 17:29 Acetaminophen 650 mg Q6H PRN PO Last administered on 06/08/25at 11:38; Start 06/05/25 at 17:30; Stop 07/05/25 at 17:29 Ondansetron HCl 4 mg Q6H PRN IVP; Start 06/05/25 at 17:30; Stop 07/05/25 at 17:29 Vancomycin HCl 1 each AD IV; Start 06/05/25 at 17:30; Stop 06/19/25 at 17:29 Famotidine 20 mg BID PO Last administered on 06/08/25at 08:25; Start 06/05/25 at 21:00; Stop 07/05/25 at 20:59 Enoxaparin Sodium 40 mg DAILY SQ Last administered on 06/08/25at 08:25; Start 06/06/25 at 09:00; Stop 07/06/25 at 08:59 Morphine Sulfate 2 mg Q6H PRN IVP; Start 06/05/25 at 17:30; Stop 06/12/25 at 17:29 Vancomycin HCl 750 mg Q8H IVPB Last administered on 06/06/25at 06:31; Start 06/05/25 at 23:30; Stop 06/06/25 at 16:06; Status DC Hydralazine HCl 5 mg Q6H PRN IV; Start 06/05/25 at 18:00; Stop 07/05/25 at 17:59 Lisinopril 10 mg DAILY PO Last administered on 06/08/25at 08:25; Start 06/06/25 at 09:00; Stop 07/06/25 at 08:59 Magnesium Sulfate 50 ml @ 0 mls/hr PROTOCOL ONCE IV Last administered on 06/06/25at 10:16; Start 06/06/25 at 10:00; Stop 06/06/25 at 10:01; Status DC Gabapentin 300 mg HS PO Last administered on 06/07/25at 20:26; Start 06/06/25 at 21:00; Stop 07/06/25 at 20:59 Sertraline HCl 50 mg HS PO Last administered on 06/07/25at 20:26; Start 06/06/25 at 21:00; Stop 07/06/25 at 20:59 Simvastatin 20 mg HS PO Last administered on 06/07/25at 20:26; Start 06/06/25 at 21:00; Stop 07/06/25 at 20:59 Magnesium Sulfate 50 ml @ 0 mls/hr PROTOCOL PRN IV; Start 06/06/25 at 10:00; Stop 07/06/25 at 09:59 Lidocaine 1 each ONCE ONCE TP Last administered on 06/06/25at 11:31; Start 06/06/25 at 11:30; Stop 06/06/25 at 11:31; Status DC Vancomycin HCl 250 ml @ 125 mls/hr Q8H IV Last administered on 06/07/25at 08:08; Start 06/06/25 at 17:00; Stop 06/07/25 at 16:51; Status DC Insulin Human Regular 5 unit TIDAC SQ Last administered on 06/07/25at 12:23; Start 06/07/25 at 07:30; Stop 06/07/25 at 20:05; Status DC Insulin Human Regular INSULIN SLIDING SCAL... ACHS SQ Last administered on 06/08/25at 11:31; Start 06/07/25 at 07:30; Stop 07/07/25 at 07:29 Insulin Glargine 25 units DAILY08 SQ Last administered on 06/08/25at 08:18; Start 06/07/25 at 08:00; Stop 07/07/25 at 07:59 Lactulose 20 gm ONCE ONCE PO Last administered on 06/07/25at 12:17; Start 06/07/25 at 10:30; Stop 06/07/25 at 10:31; Status DC Lidocaine 1 each ONCE ONCE TP Last administered on 06/07/25at 12:17; Start 06/07/25 at 10:30; Stop 06/07/25 at 10:31; Status DC Vancomycin HCl 250 ml @ 125 mls/hr Q8H IV Last administered on 06/08/25at 11:27; Start 06/08/25 at 02:00; Stop 06/18/25 at 01:59 Insulin Human Regular 7 unit TIDAC SQ Last administered on 06/08/25at 17:32; Start 06/08/25 at 07:30; Stop 07/08/25 at 07:29 ELISA MAYS MD Jun 08, 2025 18:05
== END 2025-06-08 18:00 | disposition home or self-care (01) | DRG 638 ==
LOC: EDH 13:48 → EDHIP 17:07 → 3CH 23:52
PROVIDERS: ADMIT Internal Medicine; ATTEND Internal Medicine
DX: E11.69 Type 2 diabetes mellitus with other specified complication (principal); J98.11 Atelectasis; L03.115 Cellulitis of right lower limb; M86.171 Other acute osteomyelitis, right ankle and foot; M84.477A Pathological fracture, right toe(s), initial encounter for fracture; M72.8 Other fibroblastic disorders; L03.031 Cellulitis of right toe; M60.871 Other myositis, right ankle and foot; E11.65 Type 2 diabetes mellitus with hyperglycemia; F17.210 Nicotine dependence, cigarettes, uncomplicated; K59.00 Constipation, unspecified; E78.5 Hyperlipidemia, unspecified; E83.42 Hypomagnesemia; I10 Essential (primary) hypertension; F14.10 Cocaine abuse, uncomplicated; E78.00 Pure hypercholesterolemia, unspecified; Z83.3 Family history of diabetes mellitus; Z91.148 Patient's other noncompliance with medication regimen for other reason; Z79.84 Long term (current) use of oral hypoglycemic drugs; Z79.4 Long term (current) use of insulin
CPT/HCPCS: 36415; 71046; 73630; 73718; 80048; 80061; 80076; 80202; 80305; 81001; 82948; 83036; 83605; 83735; 84145; 84550; 85025; 85651; 86140; 87040; 93306; 93356; 93925; 99285; G0378; J0692; J1650; J1815; J2543; J3373; J3475; J7030; J3370